=== PATIENT | female | born 1960 | race Caucasian/White ===

== ENCOUNTER 2024-05-02 17:30 | Inpatient (IN) | payer MEDICARE, MEDICAID, SELFPAY ==
[2024-05-02] VITALS (18 sets, daily range): BP systolic 174–235; BP diastolic 67–92; PULSE 71–99; RESP 14–20; TEMP 36.2–36.7; O2SAT 97–100
--- NOTE | ~2024-05-02 | US_ITS ---
US renal BI 05/06/2024 11:28 Procedure: Realtime transabdominal ultrasound of the kidneys and bladder. Indication: Worsening renal function Comparison: Ultrasound dated 05/03/2024 Findings: Renal echotexture is normal bilaterally without contour deforming mass or renal calculus. T here is moderate-severe right hydronephrosis. The right kidney measures 9.2 cm and left kidney measur es 9.8 cm. Bladder not well visualized due to catheterization. Impression: 1: Moderate-severe right hydronephrosis. Reviewed, dictated and finalized at location B. Impression: 1: Moderate-severe right hydronephrosis.
--- NOTE | ~2024-05-02 | CT_ITS ---
EXAMINATION: CT guide nephro tube pl RT DATE: 05/08/2024 13:35 INDICATION: Right hydronephrosis. TECHNIQUE: The procedure including the risks, benefits, and alternatives was discussed with the patie nt. Risks discussed included bleeding and infection. The patient understood the risks and benefits an d agreed to proceed. The skin overlying the right kidney was prepped and draped in usual sterile fas hion. Anesthetic was administered with 1% lidocaine subcutaneously. An 18 gauge trochar needle was i nserted into a calyx of the kidney under CT guidance. The needle was exchanged over a wire for 6 Fren ch and 8 Chadian dilators and then for an 8.5 Chadian pigtail catheter under CT guidance. The catheter was stitched to the skin. A dressing was applied. The mA was adjusted according to patient size. Iter ative reconstruction technique was employed. The dose-length product was 561.39 mGy-cm. There were no immediate complications. FINDINGS: CT images demonstrate the nephrostomy tube in the renal pelvis. IMPRESSION: 1. Successful CT-guided right nephrostomy tube placement. Reviewed, dictated and finalized at location A.
--- NOTE | ~2024-05-02 | XR_ITS ---
EXAMINATION: XR stent kub - surgery DATE: 05/05/2024 13:37 INDICATION: Left internal ureteral stent placement TECHNIQUE: Fluoroscopic images from a left internal ureteral stent placement are submitted for review . 91 seconds of fluoroscopy of fluoroscopy time. FINDINGS: There is a left double-J internal ureteral stent projecting in expected position, with proximal [place] loop at the level of the renal pelvis and distal loop in the pelvis within the bladder lumen. IMPRESSION: 1. Left internal ureteral stent placement. Please refer to real-time procedural findings for detail s. Reviewed, dictated and finalized at location B. IMPRESSION: 1. Left internal ureteral stent placement. Please refer to real-time procedur al findings for details.
--- NOTE | ~2024-05-02 | CT_ITS ---
CT abdomen pelvis wo con Ordering provider: Johann Dean MD History: 64 years Female with . worsened renal function . Comparison: May 02, 2024 Technique: CT abdomen and pelvis without IV and without oral contrast. Automated exposure control and iterative reconstruction technique were employed. The dose-length product was 171.21 mGy-cm. Findings: VISUALIZED LOWER CHEST: Normal. UPPER ABDOMINAL ORGANS: Liver: Normal. Gallbladder: Normal. Spleen: Normal. Stomach/duodenum: Normal. Pancreas: Normal. Adrenals: Slightly prominent both adrenal. Kidneys: Right hydronephrotic changes with no definite stones in the right kidney lower ureter. Stone at the ureterovesical junction cannot be excluded. Vascular calcifications versus tiny stones are se en. Left double-J stent is noted with air seen in the left pelvicalyceal system and left ureter. PELVIC ORGANS: The bladder shows multiple stones with left double-J stent. Findings catheter is seen. BOWEL AND MESENTERY: Colon: No evidence of diverticulitis. Fecal material is loaded in the colon suggestive of constipatio n. The appendix is not demonstrated. Small Bowel: Normal. No obstruction. Peritoneum/mesentery: No free air or free fluid. No mesenteric lymphadenopathy. RETROPERITONEUM: Severe atheromatous disease of the abdominal aorta and iliac arteries. Stent is see n in the right iliac artery. Mid aorta measures 2.3 cm. No retroperitoneal lymphadenopathy. MUSCULOSKELETAL: Superficial soft tissues: The superficial soft tissues are normal. Bones: Compression fracture is seen in the superior endplate of L1 which may be acute. Clinical corre lation and further evaluation advised. Mild to moderate degenerative changes of the spine. Small scle rotic lesions seen in the left iliac bone most likely benign. Follow-up advised. IMPRESSION: 1. Right hydronephrotic changes with dilated right ureter. Possibility of stone at the ureterovesica l junction cannot be excluded. 2. Multiple urinary bladder stones. 3. Left double-J stent with air seen in the pelvic calyceal system and ureter. 4. Constipation. 5. Compression fracture of the superior endplate of L1 which may be acute. Further evaluation and cl inical correlation advised. Reviewed, dictated and finalized at location A. IMPRESSION: 1. Right hydronephrotic changes with dilated right ureter. Possibility of ston e at the ureterovesical junction cannot be excluded. 2. Multiple urinary bladder stones. 3. Left double-J stent with air seen in the pelvic calyceal system and ureter. 4. Constipation. 5. Compression fracture of the superior endplate of L1 which may be acute. Fur ther evaluation and clinical correlation advised.
--- NOTE | ~2024-05-02 | NM_ITS ---
EXAMINATION: BERTIN estrella renal scan DATE: 05/04/2024 12:44 INDICATION: Bilateral hydronephrosis TECHNIQUE: 8.2 mCi Tc-99m MAG3 was administered IV. 40 mg furosemide was administered IV immediately afterward. The patient was scanned in the supine position. A posterior abdominal radionuclide angiog nj was obtained. A subsequent time course of static images of the kidneys, ureters, and bladder was obtained. COMPARISON: None FINDINGS: The posterior abdominal radionuclide angiogram and sequential static images show normal size, positio n, and morphology of the kidneys. Peak renal parenchymal uptake within defined in both kidneys with c ontinually rising renal activity curves (normal peak 3-5 minutes). The relative early renal uptake w as 52.4% on the left and 47.6% on the right (<40% is abnormal). There is readily discernible activit y in the bilateral ureters on the imaging the latter half the study consistent with the bilateral hyd roureter evident on prior CT. T1/2 for clearance of activity from the left kidney and proximal collecting system was is undefined w ith continually rising activity curves. T1/2 for clearance of activity from the right kidney and proximal collecting system was identified wi th continually rising activity curves. Notes on interpretation: T1/2 <10 minutes is normal, 10-15 minutes is low grade obstruction of questi onable clinical significance, 15-20 minutes is partial obstruction that is likely clinically signific ant, >20 minutes is high grade obstruction. Note that false positives may be seen with supine positio claudia, dehydration, severely dilated nonobstructed kidney, atonic collecting system, poor renal functi on, and chronic furosemide use. IMPRESSION: 1. Symmetric kidney function. 2. There is delayed activity clearance from both kidneys with continually rising activity curves whi ch would be consistent with high-grade obstruction likely at the level of the bladder given the bilat erality. Reviewed, dictated and finalized at location A. IMPRESSION: 1. Symmetric kidney function. 2. There is delayed activity clearance from both kidneys with continually risi ng activity curves which would be consistent with high-grade obstruction likely at the level of the bladder given the bilaterality.
--- NOTE | ~2024-05-02 | US_ITS ---
EXAMINATION: US renal BI DATE: 05/03/2024 12:12 INDICATION: Acute renal insufficiency TECHNIQUE: Multiple ultrasound grayscale images of the kidneys were obtained. COMPARISON: None. FINDINGS: The right kidney measures 11.3 x 5.3 x 4.3 cm. The left kidney measures 10.7 x 5.8 x 3.6 cm. The kidn eys demonstrate normal echogenicity. There is moderate bilateral hydronephrosis There is no hydroneph rosis in either kidney. No stones identified. The bladder is normal but with ureteral jets observed on color Doppler. IMPRESSION: 1. Moderate bilateral hydronephrosis. Reviewed, dictated and finalized at location A.
--- NOTE | ~2024-05-02 | XR_ITS ---
EXAMINATION: XR chest 1V portable DATE: 05/02/2024 21:28 INDICATION: Chest pain TECHNIQUE: AP view of the chest was obtained. COMPARISON: None FINDINGS: Minimal increased interstitial pattern in the lower lungs consistent with mild pulmonary edema. No ot her airspace opacities, pleural effusion or pneumothorax. The cardiomediastinal silhouette is normal. Visualized bones and soft tissues are unremarkable. IMPRESSION: 1. Mild pulmonary edema at the lung bases. Reviewed, dictated and finalized at location A.
--- NOTE | ~2024-05-02 | CT_ITS ---
EXAMINATION: CT abdomen pelvis wo con DATE: 05/02/2024 21:56 INDICATION: Elevated creatinine. TECHNIQUE: Computed tomography (CT) of the abdomen and pelvis was performed without intravenous contr ast. Automated exposure control and iterative reconstruction technique were employed. The dose-length product was 203.09 mGy-cm. COMPARISON: None FINDINGS: There is small amount of smooth septal line thickening at the bilateral lung bases consistent with mi nimal pulmonary edema. Heart size is normal. Atherosclerotic coronary artery calcification is. Minima l pericardial effusion. No pleural effusion. Liver, gallbladder, spleen, pancreas and bilateral adren al glands are normal. Surgical clips at the tip the cecum likely related to prior appendectomy. Moder ate to large amount of stool scattered throughout the colon. No bowel obstruction. The uterus is not identified and has likely been surgically resected. Stenting of the right common carotid right external iliac arteries. There is calcified atherosclerosi s of the normal caliber abdominal aorta and many of the other arteries. Scarring at the right inguina l region likely related to vascular access. This includes multiple atherosclerotic calcification is a t the bilateral renal leticia. There is mild right and moderate left hydroureteronephrosis which extends to the bladder. There are p ostoperative changes with multiple surgical clips in the pelvis. Some associated streak artifact limi ts evaluation of the region of the distal most ureters. There is curvilinear calcification along the right posterolateral bladder wall the region of the right ureterovesicular junction. There is a 4 mm calcification in the region of the left ureterovesicular junction potentially representing an obstruc ting ureteral stone. Moderate to severe lumbar and lower thoracic spondylosis. There is a relatively recent-appearing L1 c ompression fracture with 20% anterior vertebral body height loss and with a still discernible linear sclerotic fracture plane underlying the depressed superior endplate. IMPRESSION: 1. Mild right and moderate left hydroureteronephrosis extending to the bladder. This could be related to bladder outlet obstruction, neurogenic bladder or obstruction at the level of the renal apices to junctions with focal bladder mural calcification at the right ureterovesicular junction and possible 4 mm stone at the left ureterovesicular junction. Assessment somewhat limited by streak artifact fro m multiple sternal clips in the pelvis. Would recommend urologic consultation for further evaluation. 2. Minimal pulmonary edema and minimal pericardial effusion. Reviewed, dictated and finalized at location A. IMPRESSION: 1. Mild right and moderate left hydroureteronephrosis extending to the bladder. This could be related to bladder outlet obstruction, neurogenic bladder or obs truction at the level of the renal apices to junctions with focal bladder mural calcification at the right ureterovesicular junction and possible 4 mm stone a t the left ureterovesicular junction. Assessment somewhat limited by streak art ifact from multiple sternal clips in the pelvis. Would recommend urologic consu ltation for further evaluation. 2. Minimal pulmonary edema and minimal pericardial effusion.
--- NOTE | 2024-05-02 19:54 | PC.NURSE ---
pt unable to urinate at this time. pt is refusing straight cath at this time
[2024-05-02 19:56] LABS: Basophils Absolute Auto 0.1 K/mm3 (0.0-0.1); Basophils Percent Auto 1.2 % (0.2-1.2); Eosinophils Absolute Auto 0.4 K/mm3 (0-0.3); Hematocrit 27.6 % (37.0-47.0); Immature Granulocyte Absolute 0.03 K/mm3 (0.00-0.031); Immature Granulocyte Percent A 0.4 % (0-0.5); Lymphocytes Percent Auto 28.3 % (18.3-44.2); Mean Corpuscular HGB Conc 32.6 g/dl (32-36); Mean Corpuscular Hemoglobin 33.5 pg (26-34); Mean Corpuscular Volume 102.6 fl (80-100); Mean Platelet Volume 10.1 fl (7.4-10.4); Monocytes Absolute Auto 0.5 K/mm3 (0.1-0.6); Monocytes Percent Auto 5.8 % (2.6-8.5); Neutrophils Absolute Auto 4.6 K/mm3 (1.3-6.7); Neutrophils Percent Auto 59.3 % (45.5-73.1); Platelet Count Result 216 k/mm3 (150-375); Red Blood Count 2.69 M/mm3 (4.2-5.4); Red Cell Distribution Width 14.3 % (11.5-14.5); White Blood Count 7.8 K/mm3 (4.5-10.0)
--- NOTE | 2024-05-02 20:00 | ED.FEMALEGU ---
HPI - Female Genitourinary General Chief complaint: Urogenital-Female Stated complaint: Kidney level 19, problems with stent Time Seen by Provider: 05/02/24 19:01 History of Present Illness HPI Narrative: Patient is a 64-year-old female who presents to the emergency department this evening after her primary care physician informed her that she needs to present to the emergency department due to elevated kidney levels. Patient denies any history of chronic kidney disease and is a poor historian. Family members present at bedside due provide some of the history. Paperwork from [facility] brought in by the patient revealed blood work obtained on April 20 revealing a BUN of 46, creatinine of 3.7, blood work results from April 23 revealing a BUN of 32 and a creatinine of 3, and blood work from May 02 from outside facility revealing a BUN of 39 and creatinine of 2.70, unsure of what patient's baseline is. Patient has a chronic right foot wound that is currently being cared by wound which comes to her house once a week. Wound dressing was removed and patient and family members state that the wound has significantly improved and is healing well, patient does have an ulcer measuring approximately 3 cm x 2 cm on the top of her right foot and a small 1.5 by 1 cm ulcer at the heel of her right foot. Patient denies any fevers or chills at home. States that her blood pressure has been running high recently. Admits that she does take blood pressure medications but has not taken any of her medications today. Admits to history of peripheral vascular disease and has stents in her right lower extremity. Denies any additional symptoms or concerns at this time. Related Data Allergies Allergy/AdvReac Type Severity Reaction Status Date / Time No Known Allergies Allergy Verified 05/02/24 17:37 Review of Systems Review of Systems: All systems are reviewed and are negative unless stated otherwise in the HPI. Exam Narrative: General: Alert, awake, afebrile, in no acute distress. HEENT: PERRL, no rhinorrhea, no post nasal drip, oropharynx clear, poor dental hygiene. Cardiovascular: Regular rate and rhythm, no murmurs, rubs or gallops, no peripheral edema. Respiratory: Clear to auscultation bilaterally, no tachypnea, no wheezing, no rhonchi, no rubs, no respiratory distress. Abdomen: Soft, nontender, nondistended, no rebound, no guarding, no peritoneal signs. Musculoskeletal: No joint swelling or deformity, normal muscle tone, right 2nd 4th toe amputations. Skin: Chronic right foot wounds, an ulcer measuring approximately 3 cm x 2 cm on the top of her right foot and a small 1.5 by 1 cm ulcer at the heel of her right foot with some purulent drainage, no surrounding erythema, patient states that wounds are healing and appear to be significantly improved. Neurological: Alert and oriented to person, place, and time. Follows all commands. No focal deficits, speech is clear and fluent. Course Vital Signs Vital signs: Vital Signs Temperature 98.1 F 05/02/24 17:32 Pulse Rate 85 05/02/24 17:32 Respiratory Rate 16 05/02/24 17:32 Blood Pressure 206/77 H 05/02/24 17:32 Pulse Oximetry 100 05/02/24 17:32 Temperature 97.1 F L 05/02/24 21:15 Pulse Rate 80 05/02/24 22:31 Respiratory Rate 16 05/02/24 22:31 Blood Pressure 181/77 H 05/02/24 22:31 Pulse Oximetry 97 05/02/24 22:31 MDM - Female Genitourinary MDM Narrative Medical decision making narrative: The patient was evaluated by myself in the emergency department. History is obtained from patient who is an independent historian and physical exam was performed. External medical records were reviewed at this time. IV was established and pertinent tests were ordered. EKG was obtained at this time and independently interpreted by me revealing sinus rhythm rate of 99 beats per minute with T-wave inversions in the inferior leads and leads IV or throug
[2024-05-02 20:07] LABS: Anion Gap 5 mmol/L (4-12); Blood Urea Nitrogen 41 mg/dL (7-17); Carbon Dioxide 24 mmol/L (22-30); Chloride 109 mmol/L (98-107); Potassium 4.5 mmol/L (3.4-5.0); Sodium 138 mmol/L (137-145)
[2024-05-02 20:08] LABS: Alanine Aminotransferase 6 U/L (6-35); Albumin Level 3.4 g/dL (3.5-5.1); Alkaline Phosphatase 81 U/L (38-126); Aspartate Amino Transferase 19 U/L (14-36); Bilirubin,Total 0.1 mg/dL (0.2-1.3); Calcium 8.7 mg/dL (8.4-10.2); Estimated CRCL calculation 13 ml/min; Estimated Glomerular Filt Rate 18; Glucose 90 mg/dL (65-110); Magnesium 2.1 mg/dL (1.6-2.3)
[2024-05-02] MEDS: SODIUM CHLORIDE 0.9% IV 1,000 ML 999 ML IV CONT (20:18)
[2024-05-02] MEDS: hydrALAZINE HCL 20 MG/ML VIAL 10 MG IV PUSH (20:29)
--- NOTE | 2024-05-02 20:50 | ECG_ITS ---
Test Date: 2024-05-02 20:57:08 Measurements Intervals [place] Rate: 99 P: 74 IN: 150 QRS: 78 QRSD: 86 T: 264 QT: 320 QTc: 412 Interpretive Statements SINUS RHYTHM ST-T WAVE ABNORMALITY IN ANTEROLAT/INF LEADS- CONSIDER ISCHEMIA BASELINE ARTIFACT- I, II, III, AVR, AVL, AVF, V4-V6 ABNORMAL ECG No previous ECG available for comparison Electronically Signed On 05-03-2024 06:39:29 CDT by Alek Sy D.O.
[2024-05-02] MEDS: ASPIRIN 81 MG CHEWABLE TABLET 324 MG PO (21:13)
[2024-05-02] MEDS: NITROGLYCERIN SL 0.4 MG TABLET SUBLINGUAL (21:13)
[2024-05-02 21:28] LABS: Troponin I < 0.012 ng/mL (0.000-0.034)
[2024-05-02 21:37] LABS: Add Urine Microscopic? YES; Appearance Urine Clear (Clear); Bacteria Urine None Seen /hpf; Bilirubin Urine Negative (Negative); Blood Urine 3+ (Negative); Color Urine Yellow (Yellow); Glucose Urine UA Negative (Negative); Ketones Urine Negative (Negative); Leukocyte Esterase Ur Negative LEU/UL (Negative); Nitrate Urine Negative (Negative); Non Pathogenic Casts 0-2; Protein Urine 3+ mg/dL (Negative); RBC Urine >100 /hpf (0-2); Specific Grav Ur 1.009 (1.001-1.035); Squamous Epithelial Cell Urine None Seen /hpf (Few); Urobilinogen Urine 0.2 mg/dL (<2.0); WBC Urine 0-5 /hpf (0-3)
--- NOTE | 2024-05-02 22:46 | ECG_ITS ---
Test Date: 2024-05-02 22:51:59 Measurements Intervals [place] Rate: 86 P: 68 CA: 161 QRS: 70 QRSD: 83 T: 63 QT: 381 QTc: 457 Interpretive Statements SINUS RHYTHM POSSIBLE LEFT ATRIAL ENLARGEMENT MINIMAL Q WAVES- INFERIOR LEADS BORDERLINE ST ABNORMALITY- INF/LAT LEADS BORDERLINE ECG Compared to ECG 05/02/2024 20:57:08 Possible ischemia no longer present Electronically Signed On 05-03-2024 06:40:19 CDT by Alek Sy D.O.
[2024-05-02 23:22] LABS: Troponin I 0.025 ng/mL (0.000-0.034)
--- NOTE | 2024-05-02 23:54 | PM.IMHP ---
H&P: HPI History of Present Illness Date/Time: 05/02/24 23:54 Chief Complaint: abnormal lab work Narrative: This is a 64-year-old female with past medical history significant for hypertension, peripheral vascular disease, chronic kidney disease, chronic wound of the foot, patient is also status post toe amputation of the right foot. Presents to the emergency room for evaluation due to abnormal lab work with increased creatinine. Patient denies any fevers, rigors, chills, nausea, vomiting, denies taking antibiotics, denies diarrhea. Patient Age has a creatinine of 2.7. Primary care physicians sent her over for further workup. EXAMINATION: CT abdomen pelvis wo con DATE: 05/02/2024 21:56 INDICATION: Elevated creatinine. TECHNIQUE: Computed tomography (CT) of the abdomen and pelvis was performed without intravenous contrast. Automated exposure control and iterative reconstruction technique were employed. The dose-length product was 203.09 mGy-cm. COMPARISON: None FINDINGS: There is small amount of smooth septal line thickening at the bilateral lung bases consistent with minimal pulmonary edema. Heart size is normal. Atherosclerotic coronary artery calcification is. Minimal pericardial effusion. No pleural effusion. Liver, gallbladder, spleen, pancreas and bilateral adrenal glands are normal. Surgical clips at the tip the cecum likely related to prior appendectomy. Moderate to large amount of stool scattered throughout the colon. No bowel obstruction. The uterus is not identified and has likely been surgically resected. Stenting of the right common carotid right external iliac arteries. There is calcified atherosclerosis of the normal caliber abdominal aorta and many of the other arteries. Scarring at the right inguinal region likely related to vascular access. This includes multiple atherosclerotic calcification is at the bilateral renal leticia. There is mild right and moderate left hydroureteronephrosis which extends to the bladder. There are postoperative changes with multiple surgical clips in the pelvis. Some associated streak artifact limits evaluation of the region of the distal most ureters. There is curvilinear calcification along the right posterolateral bladder wall the region of the right ureterovesicular junction. There is a 4 mm calcification in the region of the left ureterovesicular junction potentially representing an obstructing ureteral stone. Moderate to severe lumbar and lower thoracic spondylosis. There is a relatively recent-appearing L1 compression fracture with 20% anterior vertebral body height loss and with a still discernible linear sclerotic fracture plane underlying the depressed superior endplate. IMPRESSION: 1. Mild right and moderate left hydroureteronephrosis extending to the bladder. This could be related to bladder outlet obstruction, neurogenic bladder or obstruction at the level of the renal apices to junctions with focal bladder mural calcification at the right ureterovesicular junction and possible 4 mm stone at the left ureterovesicular junction. Assessment somewhat limited by streak artifact from multiple sternal clips in the pelvis. Would recommend urologic consultation for further evaluation. 2. Minimal pulmonary edema and minimal pericardial effusion. Review of Systems Review of Systems: Abnormal lab work ROS unobtainable: Yes other ( patient is a poor historian unable to contribute in a meaningful way ) COUNTS INCLUDE 234 BEDS AT THE [facility] Past Medical History Medical History (Updated 05/03/24 @ 09:28 by Idania Chen PA-C) Kidney stones Family History Family History (Updated 05/03/24 @ 00:42 by Agnieszka Nichols RN) Sibling Cancer Diabetes mellitus Hypertension Mother Cancer Cerebrovascular accident Father Diabetes mellitus Hypertension Acute myocardial infarction Congestive heart failure Chronic obstructive pulmonary disease Social History Social History (Reviewed 05/02/24
[2024-05-03] VITALS (17 sets, daily range): BP systolic 155–230; BP diastolic 60–94; PULSE 84–133; RESP 16–20; TEMP 36.6–36.8; O2SAT 97–100; BMI 17.9
--- NOTE | 2024-05-03 00:24 | PC.NURSE ---
This RN made Hospitalist Dr. Vieira aware of pt continuous high BP readings. Provider VORB 10mg IVP hydralazine.
[2024-05-03] MEDS: hydrALAZINE HCL 20 MG/ML VIAL 10 MG IV PUSH ×4 (00:33→23:00)
--- NOTE | 2024-05-03 01:01 | ADMGEN ---
This patient, Adelaida Carpio, was admitted to Medical Room 257-01. Patient/family oriented to hospital policies and general routines including ID bracelet, bed and alarms, visiting hours, pain management, procedures, bathroom and other care routines, personal items, smoking policy, room service/diet, and visiting hours. Information on how to activate the Rapid Response Team has been discussed. Patient/Family are encouraged to report perceived risks to care and to ask questions if they do not understand what they are told or what they should do.
[2024-05-03] MEDS: amLODIPine BESYLATE 10 MG TABLET PO (02:03)
--- NOTE | 2024-05-03 02:21 | ECG_ITS ---
Test Date: 2024-05-03 02:32:51 Measurements Intervals [place] Rate: 101 P: 65 CO: 128 QRS: 64 QRSD: 85 T: -81 QT: 349 QTc: 454 Interpretive Statements SINUS TACHYCARDIA LEFT VENTRICULAR HYPERTROPHY AND ST-T CHANGE ST-T WAVE ABNORMALITY IN ANTEROLATERAL LEADS- CONSIDER ISCHEMIA ABNORMAL ECG Compared to ECG 05/02/2024 22:51:59 HEART RATE HAS INCREASED ST-T WAVE ABNORMALITY, CONSIDER ISCHEMIA NOW PRESENT Electronically Signed On 05-03-2024 06:45:03 CDT by Alek Sy D.O.
[2024-05-03] MEDS: MORPHINE SULFATE (*CRX) 2 MG/ML INJ 1 MG IV PUSH (02:29)
[2024-05-03] MEDS: ONDANSETRON INJ 4 MG/2 ML VIAL IV PUSH (02:45)
--- NOTE | 2024-05-03 08:32 | PM.IMPN ---
Progress Note: A&P Assessment and Plan (1) ERIC (acute kidney injury): Code(s): N17.9 - Acute kidney failure, unspecified Status: Acute Assessment and Plan: placed in observation in med tele patient's BUN and creatinine will be monitored daily daily BMP will hold spironolactone will hold benazepril will hold hydrochlorothiazide renal ultrasound in am (2) Uncontrolled hypertension: Code(s): I10 - Essential (primary) hypertension Status: Acute Assessment and Plan: hydralazine 10 mg IV Q 6 hours p.r.n. (3) Peripheral vascular disease: Code(s): I73.9 - Peripheral vascular disease, unspecified Status: Acute Assessment and Plan: status post stent placement (4) Chronic wound of extremity: Status: Acute Assessment and Plan: local care-would care is ordered- appreciate recommendations Time Spent With Patient Time with patient: Greater than 35 minutes Subjective Date/time seen: 05/03/24 08:32 Interval history: abnormal lab work Narrative retrieved from H/P: This is a 64-year-old female with past medical history significant for hypertension, peripheral vascular disease, chronic kidney disease, chronic wound of the foot, patient is also status post toe amputation of the right foot. Presents to the emergency room for evaluation due to abnormal lab work with increased creatinine. Patient denies any fevers, rigors, chills, nausea, vomiting, denies taking antibiotics, denies diarrhea. Patient Age has a creatinine of 2.7. Primary care physicians sent her over for further workup. 05/03- pt is seen and examined today. she is resting in bed- voicing no complains Review of Systems Review of Systems: Abnormal lab work Exam Narrative: Patient is laying in a stretcher Const: General: comfortable, no acute distress, well developed, alert, awake, ill appearing chronically, average body habitus and underweight Nutritional Appearance: average body habitus and underweight Orientation/consciousness: patient oriented x3 Other: patient looks older than stated age HENMT: Head: normal to inspection, normocephalic and atraumatic Ears: hearing grossly normal bilaterally Face/Nose/Sinus: normal facial exam Face and sinus: normal facial exam Eyes: General: appearance normal, both eyes and all related structures Pupils: Equal, round and reactive pupils present EOM: EOMs intact bilaterally Neck: Neck: full ROM, no lymphadenopathy and no JVD Thyroid: thyroid normal Lymphatic: no lymphadenopathy noted Resp: Effort & Inspection: normal respiratory effort and able to speak in complete sentences Auscultation: clear to auscultation bilaterally Cardio: Jugular venous distension: no JVD Rate: regular rate Rhythm: regular rhythm Heart sounds: S1 normal heart sound present and S2 normal heart sound present : General: Yes deferred Skin: Rashes: no rashes Wounds: no wounds Neuro: General: patient oriented x3, CN's II-XI intact bilaterally and Unable to assess gait Cranial nerves: Yes CN's II-XII intact bilaterally and Yes Equal, round and reactive pupils present Cognition (Neuro): normal cognition Speech: normal speech Gait exam (Neuro): Unable to assess gait Motor exam (neuro): 5/5 motor strength present throughout Extrem: General: normal to inspection, full ROM, no joint enlargement and no pedal edema Other: patient is status post toe amputation of the right foot dressing in place Objective Data Vital Signs Vital Signs: Vital Signs - 24 hr 05/02/24 17:32 05/02/24 18:44 05/02/24 18:35 Temperature 98.1 F Pulse Rate 85 81 79 Respiratory Rate 16 14 16 Blood Pressure 206/77 H 216/92 H 216/92 H Pulse Oximetry 100 100 100 Oxygen Delivery Fraction of Inspired Oxygen 05/02/24 18:46 05/02/24 19:01 05/02/24 19:16 Temperature Pulse Rate 79 71 76 Respiratory Rate 16 15 14 Blood Pressure 214/76 H 202/73 H 21
--- NOTE | 2024-05-03 09:15 | WPDURCON ---
Assessment and Plan Assessment and plan (1) Bilateral hydronephrosis: Code(s): N13.30 - Unspecified hydronephrosis Status: Acute Assessment and Plan: Noted to have mild right and moderate left hydronephrosis extending to bladder with possible ureteral obstruction. Will proceed with byrnes catheter placement and monitor creatinine to assess for improvement. Consider repeat renal US in next 1-2 days to ensure resolution of hydronephrosis. (2) ERIC (acute kidney injury): Code(s): N17.9 - Acute kidney failure, unspecified Status: Acute Assessment and Plan: Creatinine 2.7 on presentation. Baseline is unknown. Awaiting repeat labs this morning Urology Consult Note HPI Date Seen: 05/03/24 Requesting Physician: Lauren Vieira MD Primary Care Provider: Rosa Maria Dawkins, [employer] Consult Narrative Narrative: Adelaida Carpio is a 64 year old female with history of prior kidney stones which have passed spontaneously who is currently admitted for acute kidney injury. The patient was instructed to present to the ER by her PCP after having outpatient labs completed that demonstrated acute kidney injury. Upon arrival to the emergency department, her BP was elevated, additional vital signs were stable and she was afebrile, WBC within normal limits at 7.8, creatinine 2.7, BUN 41, UA with 3+ blood, negative leukocytes, negative nitrates. A CT of her abdomen/pelvis was completed which demonstrates mild right and moderate left hydroureteronephrosis extending to the bladder evaluation limited by streak artifact, though there is possible calcification along the right posterolateral bladder wall in the region of the right UVJ along with a possible 4 mm calcification of the left UVJ. Also noted to have multiple surgical clips in the pelvis, though patient reports no prior history of abdominal or pelvic surgery. She is a rather poor historian and required questions to be repeated several times before she would provide a response. At the time of my evaluation, she is resting comfortably and offers no concerns. She denies dysuria, hematuria, incomplete emptying, history of retention, abdominal pain, flank pain, back pain, nausea, vomiting, fever, or chills. She does report that she was previously established with a urologist in [place] several years ago due to her history of stones, though never required any surgery Review of Systems Review of Systems: All systems reviewed & are unremarkable except as noted in HPI and below PMFSH Past Medical History Medical History (Updated 05/03/24 @ 09:28 by Idania Chen PA-C) Kidney stones Family History Family History (Updated 05/03/24 @ 00:42 by Agnieszka Nichols RN) Sibling Cancer Diabetes mellitus Hypertension Mother Cancer Cerebrovascular accident Father Diabetes mellitus Hypertension Acute myocardial infarction Congestive heart failure Chronic obstructive pulmonary disease Social History Social History Smoking packs per day: 0.5 Smoking cigarettes per day: 10.0 Years smoked: 51 Smoking pack-years: 25.50 Smoking status: Current some day smoker Substance use type: marijuana Last use: 05/02/24 Do You Feel Safe in your Home?: Yes Lack of Transportation: No Lack of Food: Never True Current Housing: I Have Housing Concerned About Future Housing: No Difficulty Paying Gas/Electric Bills: No Difficulty Paying for Meds: No Currently Unemployed: No Education: High School Diploma/GED Difficulty w/ Childcare or Family Care: No Spiritual care concerns: No Meds Home Medications and Allergies Home Medications Medication Instructions Recorded Confirmed Type amlodipine 10 mg-benazepril 40 mg 1 cap PO DAILY 05/03/24 05/03/24 History capsule aspirin 81 mg tablet,delayed 81 mg PO DAILY 05/03/24 05/03/24 History release clopidogrel 75 m
[2024-05-03] MEDS: ROSUVASTATIN 20 MG TABLET 40 MG PO (20:12)
[2024-05-04] VITALS (12 sets, daily range): BP systolic 110–237; BP diastolic 48–80; PULSE 82–111; RESP 16–18; TEMP 36.6–36.9; O2SAT 95–100
[2024-05-04] MEDS: ONDANSETRON INJ 4 MG/2 ML VIAL IV PUSH (05:34)
[2024-05-04] MEDS: GABAPENTIN 400 MG CAPSULE PO ×3 (08:27→17:27)
[2024-05-04] MEDS: ASPIRIN 81 MG ENTERIC TABLET PO (08:28)
[2024-05-04] MEDS: SERTRALINE HCL 25 MG TABLET PO (08:28)
[2024-05-04] MEDS: amLODIPine BESYLATE 10 MG TABLET PO (08:28)
[2024-05-04] MEDS: CLOPIDOGREL BISULFATE 75 MG TABLET PO (08:28)
[2024-05-04] MEDS: hydrALAZINE HCL 20 MG/ML VIAL 10 MG IV PUSH (08:28)
[2024-05-04 09:00] LABS: Anion Gap 11 mmol/L (4-12); Blood Urea Nitrogen 35 mg/dL (7-17); Calcium 8.8 mg/dL (8.4-10.2); Carbon Dioxide 17 mmol/L (22-30); Chloride 110 mmol/L (98-107); Estimated CRCL calculation 14 ml/min; Estimated Glomerular Filt Rate 18; Glucose 101 mg/dL (65-110); Potassium 3.9 mmol/L (3.4-5.0); Sodium 138 mmol/L (137-145)
--- NOTE | 2024-05-04 09:16 | PM.IMPN ---
Progress Note: A&P Assessment and Plan (1) ERIC (acute kidney injury): Code(s): N17.9 - Acute kidney failure, unspecified Status: Acute Assessment and Plan: placed in observation in med tele patient's BUN and creatinine will be monitored daily daily BMP will hold spironolactone will hold benazepril will hold hydrochlorothiazide renal ultrasound - repeat- urology following (2) Uncontrolled hypertension: Code(s): I10 - Essential (primary) hypertension Status: Acute Assessment and Plan: hydralazine 10 mg IV Q 6 hours p.r.n. (3) Peripheral vascular disease: Code(s): I73.9 - Peripheral vascular disease, unspecified Status: Acute Assessment and Plan: status post stent placement (4) Chronic wound of extremity: Status: Acute Assessment and Plan: local care Time Spent With Patient Time with patient: Greater than 35 minutes Subjective Date/time seen: 05/04/24 09:16 Interval history: abnormal lab work Narrative retrieved from H/P: This is a 64-year-old female with past medical history significant for hypertension, peripheral vascular disease, chronic kidney disease, chronic wound of the foot, patient is also status post toe amputation of the right foot. Presents to the emergency room for evaluation due to abnormal lab work with increased creatinine. Patient denies any fevers, rigors, chills, nausea, vomiting, denies taking antibiotics, denies diarrhea. Patient Age has a creatinine of 2.7. Primary care physicians sent her over for further workup. 05/03- pt is seen and examined today. she is resting in bed- voicing no complains 05/04- BP high- amlodipine daily, Hydralazine IV prn. Renal ultrasound repeat posisbly today. She is very cranky as feels constipated and uncomfortable. Review of Systems Review of Systems: Abnormal lab work All systems reviewed & are unremarkable except as noted in HPI and below ROS unobtainable: Yes other ( patient is a poor historian unable to contribute in a meaningful way ) Exam Narrative: General: Awake, alert, comfortable, no acute distress HEENT: Normocephalic, atraumatic, sclerae anicteric Respiratory: Normal respiratory effort, no accessory muscle use Abdomen: Nondistended, soft, nontender Skin: Normal coloration, warm and dry Neurologic: No focal neuro deficits noted Psychiatric: slightly irrigated but cooperative Const: General: comfortable, no acute distress, well developed, alert, awake, ill appearing chronically, average body habitus and underweight Nutritional Appearance: average body habitus and underweight Orientation/consciousness: patient oriented x3 Other: patient looks older than stated age HENMT: Head: normal to inspection, normocephalic and atraumatic Ears: hearing grossly normal bilaterally Face/Nose/Sinus: normal facial exam Face and sinus: normal facial exam Eyes: General: appearance normal, both eyes and all related structures Pupils: Equal, round and reactive pupils present EOM: EOMs intact bilaterally Neck: Neck: full ROM, no lymphadenopathy and no JVD Thyroid: thyroid normal Lymphatic: no lymphadenopathy noted Resp: Effort & Inspection: normal respiratory effort and able to speak in complete sentences Auscultation: clear to auscultation bilaterally Cardio: Jugular venous distension: no JVD Rate: regular rate Rhythm: regular rhythm Heart sounds: S1 normal heart sound present and S2 normal heart sound present : General: Yes deferred Skin: Rashes: no rashes Wounds: no wounds Neuro: General: patient oriented x3, CN's II-XI intact bilaterally and Unable to assess gait Cranial nerves: Yes CN's II-XII intact bilaterally and Yes Equal, round and reactive pupils present Cognition (Neuro): normal cognition Speech: normal speech Gait exam (Neuro): Unable to assess gait Motor exam (neuro): 5/5 motor strength present throughout Extrem: General: normal t
--- NOTE | 2024-05-04 09:26 | WPDUROPN2 ---
Progress Note: A&P Assessment and Plan (1) Bilateral hydronephrosis: Code(s): N13.30 - Unspecified hydronephrosis Status: Acute Assessment and Plan: Noted to have mild right and moderate left hydronephrosis extending to bladder with possible ureteral obstruction. No significant change in creatinine today despite decompression with Fuentes catheter (Fuentes placed 05/03/2024). Will proceed with Lasix renal scan for further evaluation (2) ERIC (acute kidney injury): Code(s): N17.9 - Acute kidney failure, unspecified Status: Acute Assessment and Plan: Creatinine 2.7 on presentation. Baseline is unknown. Essentially unchanged today at 2.6. Continue to monitor Subjective Subjective Date/Time Seen: 05/04/24 09:26 Interval history: Feeling fair today. Complains of constipation. Reports no issues with Fuentes catheter which is draining clear urine. Denies nausea, vomiting, fever, or chills. Review of Systems Review of Systems: All systems reviewed & are unremarkable except as noted in HPI and below Exam Narrative: General: Awake, alert, comfortable, no acute distress HEENT: Normocephalic, atraumatic, sclerae anicteric Respiratory: Normal respiratory effort, no accessory muscle use Abdomen: Nondistended, soft, nontender : Fuentes catheter draining clear urine Skin: Normal coloration, warm and dry Neurologic: No focal neuro deficits noted Psychiatric: Appropriate mood and affect, judgment and insight intact Objective Data Vital Signs Vital Signs: Vital Signs - 24 hr 05/03/24 10:07 05/03/24 10:08 05/03/24 12:00 Temperature 97.9 F Pulse Rate 91 86 Respiratory Rate 16 Blood Pressure 155/62 H Pulse Oximetry 97 Oxygen Delivery Room Air Fraction of Inspired Oxygen 05/03/24 16:31 05/03/24 16:00 05/03/24 19:41 Temperature 98.3 F Pulse Rate 84 95 84 Respiratory Rate 16 16 Blood Pressure 185/70 H Pulse Oximetry 100 100 Oxygen Delivery Room Air Fraction of Inspired Oxygen 21 05/03/24 20:00 05/03/24 20:15 05/04/24 00:00 Temperature 98.2 F Pulse Rate 95 100 105 H Respiratory Rate 16 Blood Pressure 217/60 H Pulse Oximetry 100 Oxygen Delivery Fraction of Inspired Oxygen 05/04/24 04:00 05/04/24 06:00 05/04/24 08:25 Temperature 97.9 F Pulse Rate 88 82 111 H Respiratory Rate 16 Blood Pressure 110/64 237/80 H Pulse Oximetry 95 Oxygen Delivery Fraction of Inspired Oxygen Intake/Output Intake/Output: Intake & Output 05/01/24 05/02/24 05/03/24 05/04/24 23:59 23:59 23:59 23:59 Intake Total 1000 200 500 Output Total 450 900 Balance 1000 -250 -400 Meds/Results Medications: Active Medications Generic Name Dose Route Start Last Admin Trade Name Freq PRN Reason Stop Dose Admin Amlodipine Besylate 10 mg 05/03/24 01:40 05/04/24 08:28 Amlodipine Besylate 10 Mg Tablet PO 06/02/24 08:59 10 mg DAILY HIREN Administration Aspirin 81 mg 05/03/24 09:00 05/04/24 08:28 Aspirin 81 Mg Enteric Tablet PO 81 mg DAILY HIREN Administration Clopidogrel Bisulfate 75 mg 05/03/24 09:00 05/04/24 08:28 Clopidogrel Bisulfate 75 Mg Tablet PO 75 mg DAILY HIREN Administration Gabapentin 400 mg 05/03/24 09:00 05/04/24 08:27 Gabapentin 400 Mg Capsule PO 400 mg TID HIREN Administration Hydralazine HCl 10 mg 05/04/24 09:19 Hydralazine Hcl 20 Mg/Ml Vial IV PUSH Q6H PRN SYSTOLIC BP >150 Nitroglycerin 0.4 mg 05/03/24 01:20 Nitroglycerin Sl 0.4 Mg Tablet SUBLINGUAL Q5MIN PRN CHEST PAIN Ondansetron HCl 4 mg 05/03/24 02:37 05/04/24 05:34 Ondansetron Inj 4 Mg/2 Ml Vial IV PUSH 4 mg Q6H PRN Administration Nausea And Vomiting Rosuvastatin Calcium 40 mg 05/03/24 21:00 05/03/24 20:12 Rosuvastatin 20 Mg Tablet PO 40 mg HS HIREN Administration Sertraline HCl 25 mg 05/03/24 09:00 05/04/24 08:28 Sertraline Hcl 25 Mg Tablet PO
--- NOTE | 2024-05-04 10:35 | PCNFU ---
Nutrition Follow-Up Complete: Inadequate Energy Intake as related to ERIC as evideced by poor po intake and weight loss reported. Meet estimated nutritional needs. - Not progressing. Diet was advanced to regular but intakes are poor. Continue with same goal Goal: Pt current nutrition is Regular diet. Ensure Compact BID for additional 220 kcal and 9 g protein each. Nutrition recommendation: No new nutrition recommendations. Continue current nutrition care plan. Agree with diet orders Last recorded weight is 44.3 kg. Bowel Motility: No BMs are recorded Labs Reviewed: GFR 18, BUN 35, Cre 2.6 Meds Noted Zofran Skin: No pressure injuries Additional Notes: Intakes very poor, 0% dinner, sleeping at breakfast. Pt not able to give weight history and no weights in EMR. Will assess for malnutrition if information is obtained. Will monitor weight, labs, skin, oral intake, meds every 3 days.
[2024-05-04] MEDS: DOCUSATE SODIUM 100 MG CAPSULE PO ×2 (11:17→20:03)
[2024-05-04] MEDS: polyethylene glycoL 3350 17 GM POWD.PACK PO (11:17)
[2024-05-04] MEDS: METOPROLOL TARTRATE INJ 5 MG/5 ML VIAL IV PUSH (11:18)
[2024-05-04] MEDS: FUROSEMIDE INJ 40 MG/4 ML VIAL IV PUSH (12:03)
[2024-05-04] MEDS: BISACODYL 10 MG SUPPOSITORY RECTAL (17:41)
[2024-05-04] MEDS: ROSUVASTATIN 20 MG TABLET 40 MG PO (20:03)
[2024-05-05] VITALS (17 sets, daily range): BP systolic 122–189; BP diastolic 54–82; PULSE 73–84; RESP 12–20; TEMP 36.5–37.2; O2SAT 97–100
[2024-05-05 08:42] LABS: Anion Gap 10 mmol/L (4-12); Blood Urea Nitrogen 37 mg/dL (7-17); Calcium 8.6 mg/dL (8.4-10.2); Carbon Dioxide 18 mmol/L (22-30); Chloride 106 mmol/L (98-107); Estimated CRCL calculation 13 ml/min; Estimated Glomerular Filt Rate 18; Glucose 82 mg/dL (65-110); Potassium 3.4 mmol/L (3.4-5.0); Sodium 134 mmol/L (137-145)
--- NOTE | 2024-05-05 09:04 | WPDUROPN2 ---
Progress Note: A&P Assessment and Plan (1) Bilateral hydronephrosis: Code(s): N13.30 - Unspecified hydronephrosis Status: Acute Assessment and Plan: Noted to have mild right and moderate left hydronephrosis extending to bladder with possible ureteral obstruction. Renal scan demonstrates bilateral high-grade obstruction. Creatinine remains elevated, unchanged since admission at 2.7. Continue NPO diet and will plan for cystoscopy, retrograde pyelogram, bilateral ureteral stent placement this afternoon. (2) ERIC (acute kidney injury): Code(s): N17.9 - Acute kidney failure, unspecified Status: Acute Assessment and Plan: Creatinine persistently elevated 2.7. Baseline is unknown. Subjective Subjective Date/Time Seen: 05/05/24 09:04 Interval history: Feeling fair today. Denies abdominal pain, flank pain, nausea, vomiting, fever, or chills. No issues with Fuentes catheter which is draining tea-colored urine. Review of Systems Review of Systems: All systems reviewed & are unremarkable except as noted in HPI and below Exam Narrative: General: Awake, alert, comfortable, no acute distress HEENT: Normocephalic, atraumatic, sclerae anicteric Respiratory: Normal respiratory effort, no accessory muscle use Abdomen: Nondistended, soft, nontender : Fuentes catheter draining tea-colored urine Skin: Normal coloration, warm and dry Neurologic: No focal neuro deficits noted Psychiatric: Appropriate mood and affect, judgment and insight intact Objective Data Vital Signs Vital Signs: Vital Signs - 24 hr 05/04/24 10:28 05/04/24 11:18 05/04/24 14:00 Temperature 98.4 F Pulse Rate 111 H 87 Respiratory Rate 18 Blood Pressure 179/56 H 136/48 L Pulse Oximetry 100 Oxygen Delivery Fraction of Inspired Oxygen 05/04/24 16:00 05/04/24 19:53 05/04/24 20:00 Temperature Pulse Rate 83 83 90 Respiratory Rate 18 Blood Pressure Pulse Oximetry 100 Oxygen Delivery Room Air Fraction of Inspired Oxygen 21 05/04/24 19:49 05/05/24 00:00 05/05/24 04:00 Temperature 98.3 F Pulse Rate 85 84 82 Respiratory Rate 16 Blood Pressure 190/69 H Pulse Oximetry 99 Oxygen Delivery Fraction of Inspired Oxygen 05/05/24 06:37 Temperature 97.9 F Pulse Rate 81 Respiratory Rate 18 Blood Pressure 172/60 H Pulse Oximetry 97 Oxygen Delivery Fraction of Inspired Oxygen Intake/Output Intake/Output: Intake & Output 05/02/24 05/03/24 05/04/24 05/05/24 23:59 23:59 23:59 23:59 Intake Total 1000 200 620 0 Output Total 450 1800 Balance 1000 -250 -1180 0 Meds/Results Medications: Active Medications Generic Name Dose Route Start Last Admin Trade Name Freq PRN Reason Stop Dose Admin Amlodipine Besylate 10 mg 05/03/24 01:40 05/04/24 08:28 Amlodipine Besylate 10 Mg Tablet PO 06/02/24 08:59 10 mg DAILY HIREN Administration Aspirin 81 mg 05/03/24 09:00 05/04/24 08:28 Aspirin 81 Mg Enteric Tablet PO 81 mg DAILY HIREN Administration Bisacodyl 10 mg 05/04/24 10:43 05/04/24 17:41 Bisacodyl 10 Mg Suppository RECTAL 10 mg QAM PRN Administration Constipation Clopidogrel Bisulfate 75 mg 05/03/24 09:00 05/04/24 08:28 Clopidogrel Bisulfate 75 Mg Tablet PO 75 mg DAILY HIREN Administration Docusate Sodium 100 mg 05/04/24 09:00 05/04/24 20:03 Docusate Sodium 100 Mg Capsule PO 100 mg Q12HR HIREN Administration Gabapentin 400 mg 05/03/24 09:00 05/04/24 17:27 Gabapentin 400 Mg Capsule PO 400 mg TID HIREN Administration Hydralazine HCl 10 mg 05/04/24 09:19 Hydralazine Hcl 20 Mg/Ml Vial IV PUSH Q6H PRN SYSTOLIC BP >150 Nitroglycerin 0.4 mg 05/03/24 01:20 Nitroglycerin Sl 0.4 Mg Tablet SUBLINGUAL Q5MIN PRN CHEST PAIN Ondansetron HCl 4 mg 05/03/24 02:37 05/04/24 05:34 Ondansetron Inj 4 Mg/2 Ml Vial IV PUSH 4 mg Q6H PRN Administration Nausea And
[2024-05-05] MEDS: GABAPENTIN 400 MG CAPSULE PO ×2 (11:05→17:22)
[2024-05-05] MEDS: SERTRALINE HCL 25 MG TABLET PO (11:05)
[2024-05-05] MEDS: amLODIPine BESYLATE 10 MG TABLET PO (11:05)
[2024-05-05] MEDS: hydrALAZINE 10 MG TABLET PO ×2 (11:05→17:22)
--- NOTE | 2024-05-05 12:48 | WPDHPUPDATE1 ---
History and Physical Update Update Date/Time: 05/05/24 12:48 History and Physical has been reviewed, including an updated exam of the patient. There are NO changes in the patient's condition. Risks, benefits, and alternatives have been discussed and questions answered. Patient agrees to proceed with procedure.
--- NOTE | 2024-05-05 12:54 | WPDANESEPPF ---
Anes - Initial Pre Proc Eval Procedure: Operation Date: 05/05/24 14:15 Proposed Procedures p Cystoscopy,Bilateral Retrograde Pyelogram,Bilateral Stent Placement - Yuliya Carpenter MD Date/Time: 05/05/24 12:54 Surgeon: Lauren Vieira MD Pre Op Diagnosis: ERIC, Postrenal obstruction Patient Data Age: 64 Gender: F Height: 1.57 m Weight: 44.3 kg Last Vital Signs Temp 99.0 F 05/05/24 12:15 Pulse 82 05/05/24 12:15 Resp 18 05/05/24 12:15 BP 122/65 05/05/24 12:15 Pulse Ox 100 05/05/24 12:15 O2 Del Method Room Air 05/05/24 12:15 FiO2 21 05/04/24 19:53 Allergies Allergy/AdvReac Type Severity Reaction Status Date / Time No Known Allergies Allergy Verified 05/03/24 00:14 Home Medications Medication Instructions Recorded Confirmed Type amlodipine 10 mg-benazepril 40 mg 1 cap PO DAILY 05/03/24 05/03/24 History capsule aspirin 81 mg tablet,delayed 81 mg PO DAILY 05/03/24 05/03/24 History release clopidogrel 75 mg tablet 75 mg PO DAILY 05/03/24 05/03/24 History gabapentin 400 mg capsule 400 mg PO TID 05/03/24 05/03/24 History hydrochlorothiazide 25 mg tablet 25 mg PO DAILY 05/03/24 05/03/24 History nitroglycerin 0.4 mg sublingual 0.4 mg sublingual DIRECTED 05/03/24 05/03/24 History tablet rosuvastatin 40 mg tablet 40 mg PO HS 05/03/24 05/03/24 History sertraline 25 mg tablet 25 mg PO DAILY 05/03/24 05/03/24 History spironolactone 25 mg tablet 25 mg PO DAILY 05/03/24 05/03/24 History Laboratory Tests 05/05/24 08:27 Sodium 134 L mmol/L (137-145) Potassium 3.4 mmol/L (3.4-5.0) Chloride 106 mmol/L (98-107) Carbon Dioxide 18 L mmol/L (22-30) Anion Gap 10 mmol/L (4-12) BUN 37 H mg/dL (7-17) Creatinine 2.70 H mg/dL (0.7-1.0) Estim Creat Clear Calc 13 ml/min Estimated GFR 18 L (59 - ) Glucose 82 mg/dL (65-110) Calcium 8.6 mg/dL (8.4-10.2) Patient hx anesthesia problems: none Family hx anesthesia problems: none Results Review: All pre-operative results and documents have been reviewed as part of the pre-operative evaluation. [facility] Past Medical History Medical History Kidney stones Family History Family History Sibling Cancer Diabetes mellitus Hypertension Mother Cancer Cerebrovascular accident Father Diabetes mellitus Hypertension Acute myocardial infarction Congestive heart failure Chronic obstructive pulmonary disease Social History Social History Smoking packs per day: 0.5 Smoking cigarettes per day: 10.0 Years smoked: 51 Smoking pack-years: 25.50 Smoking status: Current some day smoker Substance use type: marijuana Last use: 05/02/24 Do You Feel Safe in your Home?: Yes Lack of Transportation: No Lack of Food: Never True Current Housing: I Have Housing Concerned About Future Housing: No Difficulty Paying Gas/Electric Bills: No Difficulty Paying for Meds: No Currently Unemployed: No Education: High School Diploma/GED Difficulty w/ Childcare or Family Care: No Spiritual care concerns: No Anes - Eval Final PreProcedure Day of Procedure 05/05/24 12:54 Patient weight: cachectic and thin Heart: regular rate and rhythm Lungs: clear to auscultation and decreased breath sounds Airway: Mallampati scale and special considerations (Lower teeth very loose in the midline. ) Neurological: alert and oriented Last oral intake: >/= 8 hours ASA classification: IV Emergent: no Anesthetic plan: proceed Anesthesia type and monitoring: general GIVS and standard monitoring Results Review: All pre-operative results and documents have been reviewed as part of the pre-operative evaluation. Hx of PTCA approx , cont to smoke 1/2 ppd, cr 2.7 at this time. Informed Con
[2024-05-05] MEDS: ceFAZolin 2 GM/D5W 50 ML 2 GM/50 ML BAG IVPB (12:58)
--- NOTE | 2024-05-05 13:33 | P.OP_ITS ---
Procedure Note - Detailed Date of Procedure 05/05/24 Pre-op Diagnosis Bilateral hydronephrosis, ERIC Post-op Diagnosis Same Procedure Performed Cystoscopy, left ureteral stent placement, attempted right ureteral stent placement Surgeon Santino Zeng MD Anesthesia General Description of Procedure Just prior to this procedure I was able to converse with patient's family members for the 1st time. They report that within the last year she has had extensive procedures for urothelial carcinoma the bladder and is known to have had scar tissue overlying her right ureter. With cystoscopy I see she has extensive calcifications involving the wall of the right camilo trigone. Attempted to scrape some of these calcifications off and identify the right ureteral orifice without success. There is no sherwin neoplasm in that portion, or elsewhere, in the bladder. I was able to identify her left ureteral orifice but she has an extremely tight strictured area in the intramural portion. I was able to traverse a guidewire and then, with great difficulty, dilate to 8 F. I was unable to place any kind of catheter through which I could obtain a retrograde pyelogram. It feels as if there is is his stay very tight strictured area in the distal most left ureter involving the intramural ureter. I was able to place a 6 F variable length stent with the proximal coil in the renal pelvis distal coil in the bladder. Scopes and wires removed and a 16 F Fuentes catheter was replaced. If patient's renal function does not improve with a solitary left stent she may require placement of a right percutaneous nephrostomy tube. If renal function improves she can follow-up with her urologist in [facility] for definitive intervention.
[2024-05-05] MEDS: LACTATED RINGERS 1,000 ML 30 ML IV CONT (13:38)
[2024-05-05] MEDS: fentaNYL CITRATE INJ (*CRX) 100 MCG/2 ML VIAL 25 MCG IV PUSH ×3 (13:53→14:12)
[2024-05-05] MEDS: HYDROcodone/acetaminophen (*CRX) 5-325 MG TABLET 1 TAB PO (15:13)
[2024-05-05] MEDS: DOCUSATE SODIUM 100 MG CAPSULE PO (20:20)
[2024-05-05] MEDS: ROSUVASTATIN 20 MG TABLET 40 MG PO (20:20)
[2024-05-06] VITALS (11 sets, daily range): BP systolic 136–164; BP diastolic 45–60; PULSE 63–89; RESP 16–20; TEMP 36.8–37.6; O2SAT 98–100
--- NOTE | 2024-05-06 07:47 | PM.IMPN ---
Progress Note: A&P Assessment and Plan (1) Bilateral hydronephrosis: Code(s): N13.30 - Unspecified hydronephrosis Status: Acute Assessment and Plan: Noted to have mild right and moderate left hydronephrosis extending to bladder with possible ureteral obstruction. Renal scan demonstrates bilateral high-grade obstruction. Creatinine remains elevated, unchanged since admission at 2.7. Continue NPO diet and will plan for cystoscopy, retrograde pyelogram, bilateral ureteral stent placement this afternoon. 05/06- cystoscopy yesterday with DR Zeng- difficulties due to an extremely tight strictured area in the intramural portion to left ureteral orifice but she has If patient's renal function does not improve with a solitary left stent she may require placement of a right percutaneous nephrostomy tube. If renal function improves she can follow-up with her urologist in [facility] for definitive intervention. (2) ERIC (acute kidney injury): Code(s): N17.9 - Acute kidney failure, unspecified Status: Acute Assessment and Plan: Creatinine persistently elevated 2.7. Baseline is unknown. - continue to monitor- see urology recommendations above Time Spent With Patient Time with patient: Greater than 35 minutes Subjective Date/time seen: 05/06/24 07:47 Interval history: abnormal lab work Narrative retrieved from H/P: This is a 64-year-old female with past medical history significant for hypertension, peripheral vascular disease, chronic kidney disease, chronic wound of the foot, patient is also status post toe amputation of the right foot. Presents to the emergency room for evaluation due to abnormal lab work with increased creatinine. Patient denies any fevers, rigors, chills, nausea, vomiting, denies taking antibiotics, denies diarrhea. Patient Age has a creatinine of 2.7. Primary care physicians sent her over for further workup. 05/03- pt is seen and examined today. she is resting in bed- voicing no complains 05/04- BP high- amlodipine daily, Hydralazine IV prn. Renal ultrasound repeat possibly today. She is very cranky as feels constipated and uncomfortable. 05/05- Cystoscopy, left ureteral stent placement, attempted right ureteral stent placement 05/06 pt is seen and examined. she is doing well- wants to go home but waiting for repeat labs per urology Review of Systems Review of Systems: Abnormal lab work All systems reviewed & are unremarkable except as noted in HPI and below ROS unobtainable: Yes other ( patient is a poor historian unable to contribute in a meaningful way ) Exam Narrative: General: Awake, alert, comfortable, no acute distress HEENT: Normocephalic, atraumatic, sclerae anicteric Respiratory: Normal respiratory effort, no accessory muscle use Abdomen: Nondistended, soft, nontender : Fuentes catheter draining tea-colored urine Skin: Normal coloration, warm and dry Neurologic: No focal neuro deficits noted Psychiatric: Appropriate mood and affect, judgment and insight intact Const: General: comfortable, no acute distress, well developed, alert, awake, ill appearing chronically, average body habitus and underweight Nutritional Appearance: average body habitus and underweight Orientation/consciousness: patient oriented x3 Other: patient looks older than stated age HENMT: Head: normal to inspection, normocephalic and atraumatic Ears: hearing grossly normal bilaterally Face/Nose/Sinus: normal facial exam Face and sinus: normal facial exam Eyes: General: appearance normal, both eyes and all related structures Pupils: Equal, round and reactive pupils present EOM: EOMs intact bilaterally Neck: Neck: full ROM, no lymphadenopathy and no JVD Thyroid: thyroid normal Lymphatic: no lymphadenopathy noted Resp: Effort & Inspection: normal respiratory effort and able to speak in complete sentences Auscultation: clear to auscultation bilaterally
--- NOTE | 2024-05-06 08:41 | WPDUROPN2 ---
Progress Note: A&P Assessment and Plan (1) Bilateral hydronephrosis: Code(s): N13.30 - Unspecified hydronephrosis Status: Acute Assessment and Plan: Left ureteral stent placed by Dr. Zeng yesterday. It was a difficult placement. Unable to place right ureteral stent. blood work is not been drawn yet for evaluation of creatinine level. She is feeling well and asymptomatic. She does have an out side urologist to his been addressing her bladder carcinoma. we will see what creatinine level shows. If improved or even stable may discharge home and have the right hydronephrosis addressed prior primary urologist. This appears to been a longstanding problem. If worsening renal function may need a right percutaneous nephrostomy tube. Subjective Subjective Date/Time Seen: 05/06/24 08:41 Post Op day: 1 (Left ureteral stent placement) Principal diagnosis: bilateral hydronephrosis most likely chronic in nature with elevated creat Interval history: Adelaida feels well today. Labs have not been drawn as of yet. She is status post left stent placement. Unsuccessful placement of right ureteral stent. She denies any flank pain. Review of Systems Review of Systems: All systems reviewed & are unremarkable except as noted in HPI and below Exam Const: General: cooperative and comfortable Resp: Effort & Inspection: normal respiratory effort Cardio: Rate: regular rate Rhythm: regular rhythm Objective Data Vital Signs Vital Signs: Vital Signs - 24 hr 05/05/24 11:00 05/05/24 12:15 05/05/24 13:38 Temperature 37.2 C 36.8 C Pulse Rate 82 80 Respiratory Rate 18 14 Blood Pressure 122/65 183/80 H Pulse Oximetry 100 100 Oxygen Delivery Room Air Room Air Simple Face Mask Oxygen Flow Rate 8 Fraction of Inspired Oxygen 05/05/24 13:50 05/05/24 14:05 05/05/24 14:20 Temperature Pulse Rate 82 83 76 Respiratory Rate 12 12 20 Blood Pressure 185/76 H 175/69 H 175/70 H Pulse Oximetry 100 100 100 Oxygen Delivery Simple Face Mask Room Air Room Air Oxygen Flow Rate 8 Fraction of Inspired Oxygen 05/05/24 14:35 05/05/24 14:50 05/05/24 15:12 Temperature 36.6 C 36.9 C Pulse Rate 80 81 78 Respiratory Rate 13 19 16 Blood Pressure 189/82 H 178/69 H 176/58 H Pulse Oximetry 99 100 99 Oxygen Delivery Room Air Room Air Oxygen Flow Rate Fraction of Inspired Oxygen 05/05/24 15:27 05/05/24 16:00 05/05/24 16:00 Temperature 36.9 C 36.8 C Pulse Rate 76 73 79 Respiratory Rate 16 16 Blood Pressure 170/63 H 165/55 H Pulse Oximetry 99 98 Oxygen Delivery Oxygen Flow Rate Fraction of Inspired Oxygen 05/05/24 17:22 05/05/24 20:28 05/05/24 20:00 Temperature 37.0 C 36.5 C Pulse Rate 76 81 81 Respiratory Rate 18 18 18 Blood Pressure 162/62 H 175/54 H Pulse Oximetry 100 99 99 Oxygen Delivery Room Air Oxygen Flow Rate Fraction of Inspired Oxygen 21 05/05/24 20:00 05/06/24 00:00 05/06/24 05:27 Temperature 37.0 C Pulse Rate 76 63 77 Respiratory Rate 20 Blood Pressure 164/59 H Pulse Oximetry 99 Oxygen Delivery Oxygen Flow Rate Fraction of Inspired Oxygen Intake/Output Intake/Output: Intake & Output 05/03/24 05/04/24 05/05/24 05/06/24 23:59 23:59 23:59 23:59 Intake Total 200 620 210 290 Output Total 450 1800 350 350 Balance -250 -1180 -140 -60 Meds/Results Medications: Active Medications Generic Name Dose Route Start Last Admin Trade Name Freq PRN Reason Stop Dose Admin Hydrocodone Bitart/Acetaminophen 1 tab 05/05/24 15:03 05/05/24 15:13 Hydrocodone/Acetaminophen (*Crx) 5-325 Mg Tablet PO 1 tab Q6H PRN Administration Pain Rated 4-6 Amlodipine Besylate 10 mg 05/03/24 01:40 05/05/24 11:05 Amlodipine Besylate 10 Mg Tablet PO 06/02/24 08:59 10 mg DAILY HIREN Administration Aspirin 81 mg 05/03/24 09:00 05/05/24 13:43 Aspirin 81 Mg Enteric Tablet PO Not Given DAILY HIREN Bisacodyl 10 mg
[2024-05-06] MEDS: SERTRALINE HCL 25 MG TABLET PO (08:48)
[2024-05-06] MEDS: ASPIRIN 81 MG ENTERIC TABLET PO (08:48)
[2024-05-06] MEDS: DOCUSATE SODIUM 100 MG CAPSULE PO ×2 (08:48→21:03)
[2024-05-06] MEDS: hydrALAZINE 10 MG TABLET PO ×3 (08:48→17:40)
[2024-05-06] MEDS: GABAPENTIN 400 MG CAPSULE PO ×3 (08:48→17:40)
[2024-05-06] MEDS: amLODIPine BESYLATE 10 MG TABLET PO (08:48)
[2024-05-06] MEDS: CLOPIDOGREL BISULFATE 75 MG TABLET PO (08:48)
[2024-05-06 08:54] LABS: Hematocrit 26.3 % (37.0-47.0); Mean Corpuscular HGB Conc 34.2 g/dl (32-36); Mean Corpuscular Hemoglobin 34.1 pg (26-34); Mean Corpuscular Volume 99.6 fl (80-100); Mean Platelet Volume 9.9 fl (7.4-10.4); Platelet Count Result 198 k/mm3 (150-375); Red Blood Count 2.64 M/mm3 (4.2-5.4); Red Cell Distribution Width 13.8 % (11.5-14.5); White Blood Count 13.1 K/mm3 (4.5-10.0)
--- NOTE | 2024-05-06 09:06 | WPDANESPN ---
Anes - Prog Note Post-Op Date/Time: 05/06/24 09:06 Cardiovascular status: normal Respiratory status: normal Airway patency: baseline Mental status: baseline Post-Op hydration status: normal Vital Signs: Last Vital Signs Temp 37.0 C 05/06/24 05:27 Pulse 77 05/06/24 05:27 Resp 20 05/06/24 05:27 BP 164/59 H 05/06/24 05:27 Pulse Ox 99 05/06/24 05:27 O2 Del Method Room Air 05/05/24 20:00 O2 Flow Rate 8 05/05/24 13:50 FiO2 21 05/05/24 20:00 Pain Score (VAS): 09/18 I/O: Intake & Output 05/05/24 05/06/24 05/06/24 23:59 07:59 15:59 Intake Total 110 290 Output Total 350 350 Balance -240 -60 Laboratory Tests 05/06/24 08:45 05/06/24 08:45 WBC 13.1 H RBC 2.64 L Hgb 9.0 L Hct 26.3 L MCV 99.6 MCH 34.1 H MCHC 34.2 RDW 13.8 Plt Count 198 MPV 9.9 Sodium Pending Potassium Pending Chloride Pending Carbon Dioxide Pending Anion Gap Pending BUN Pending Creatinine Pending Estim Creat Clear Calc Pending Estimated GFR Pending Glucose Pending Calcium Pending Total Bilirubin Pending AST Pending ALT Pending Alkaline Phosphatase Pending Total Protein Pending Albumin Pending Post-procedural complaints: none Patient Feedback: Patient satisfied with anesthetic care.
[2024-05-06 09:09] LABS: Alanine Aminotransferase 8 U/L (6-35); Albumin Level 3.4 g/dL (3.5-5.1); Alkaline Phosphatase 76 U/L (38-126); Anion Gap 10 mmol/L (4-12); Aspartate Amino Transferase 27 U/L (14-36); Bilirubin,Total 0.2 mg/dL (0.2-1.3); Blood Urea Nitrogen 46 mg/dL (7-17); Calcium 8.5 mg/dL (8.4-10.2); Carbon Dioxide 20 mmol/L (22-30); Chloride 105 mmol/L (98-107); Estimated CRCL calculation 12 ml/min; Estimated Glomerular Filt Rate 16; Glucose 107 mg/dL (65-110); Potassium 3.6 mmol/L (3.4-5.0); Sodium 135 mmol/L (137-145)
--- NOTE | 2024-05-06 10:37 | PM.IMPN ---
Progress Note: A&P Assessment and Plan (1) Bilateral hydronephrosis: Code(s): N13.30 - Unspecified hydronephrosis Status: Acute Assessment and Plan: Noted to have mild right and moderate left hydronephrosis extending to bladder with possible ureteral obstruction. Renal scan demonstrates bilateral high-grade obstruction. Creatinine remains elevated, unchanged since admission at 2.7. Continue NPO diet and will plan for cystoscopy, retrograde pyelogram, bilateral ureteral stent placement this afternoon. 05/05 possible cystoscopy 05/06- cystoscopy yesterday with DR Zeng- difficulties due to an extremely tight strictured area in the intramural portion to left ureteral orifice but she has If patient's renal function does not improve with a solitary left stent she may require placement of a right percutaneous nephrostomy tube. If renal function improves she can follow-up with her urologist in [facility] for definitive intervention. (2) ERIC (acute kidney injury): Code(s): N17.9 - Acute kidney failure, unspecified Status: Acute Assessment and Plan: Creatinine persistently elevated 2.7. Baseline is unknown. - continue to monitor- see urology recommendations above Time Spent With Patient Time with patient: Greater than 35 minutes Subjective Date/time seen: 05/05/24 10:37 Interval history: Adelaida feels well this am. awaiting urology for a possible procedure Review of Systems Review of Systems: Abnormal lab work All systems reviewed & are unremarkable except as noted in HPI and below ROS unobtainable: Yes other ( patient is a poor historian unable to contribute in a meaningful way ) Exam Narrative: General: Awake, alert, comfortable, no acute distress HEENT: Normocephalic, atraumatic, sclerae anicteric Respiratory: Normal respiratory effort, no accessory muscle use Abdomen: Nondistended, soft, nontender : Fuentes catheter draining tea-colored urine Skin: Normal coloration, warm and dry Neurologic: No focal neuro deficits noted Psychiatric: Appropriate mood and affect, judgment and insight intact Const: General: comfortable, no acute distress, well developed, alert, awake, ill appearing chronically, average body habitus and underweight Nutritional Appearance: average body habitus and underweight Orientation/consciousness: patient oriented x3 Other: patient looks older than stated age HENMT: Head: normal to inspection, normocephalic and atraumatic Ears: hearing grossly normal bilaterally Face/Nose/Sinus: normal facial exam Face and sinus: normal facial exam Eyes: General: appearance normal, both eyes and all related structures Pupils: Equal, round and reactive pupils present EOM: EOMs intact bilaterally Neck: Neck: full ROM, no lymphadenopathy and no JVD Thyroid: thyroid normal Lymphatic: no lymphadenopathy noted Resp: Effort & Inspection: normal respiratory effort and able to speak in complete sentences Auscultation: clear to auscultation bilaterally Cardio: Jugular venous distension: no JVD Rate: regular rate Rhythm: regular rhythm Heart sounds: S1 normal heart sound present and S2 normal heart sound present : General: Yes deferred Skin: Rashes: no rashes Wounds: no wounds Neuro: General: patient oriented x3, CN's II-XI intact bilaterally and Unable to assess gait Cranial nerves: Yes CN's II-XII intact bilaterally and Yes Equal, round and reactive pupils present Cognition (Neuro): normal cognition Speech: normal speech Gait exam (Neuro): Unable to assess gait Motor exam (neuro): 5/5 motor strength present throughout Extrem: General: normal to inspection, full ROM, no joint enlargement and no pedal edema Other: patient is status post toe amputation of the right foot dressing in place Objective Data Vital Signs Vital Signs: Vital Signs - 24 hr 05/05/24 11:00 05/05/24 12:15 05/05/24 13:38 Temperature 99.0 F 98.2
[2024-05-06] MEDS: ROSUVASTATIN 20 MG TABLET 40 MG PO (21:03)
[2024-05-07] VITALS (10 sets, daily range): BP systolic 130–166; BP diastolic 46–83; PULSE 54–74; RESP 16–17; TEMP 36.4–37.1; O2SAT 99–100
[2024-05-07 08:05] LABS: Hematocrit 25.5 % (37.0-47.0); Hemoglobin 8.7 g/dL (12.0-15.0); Mean Corpuscular HGB Conc 34.1 g/dl (32-36); Mean Corpuscular Hemoglobin 33.9 pg (26-34); Mean Corpuscular Volume 99.2 fl (80-100); Mean Platelet Volume 10.1 fl (7.4-10.4); Platelet Count Result 186 k/mm3 (150-375); Red Blood Count 2.57 M/mm3 (4.2-5.4); Red Cell Distribution Width 13.9 % (11.5-14.5); White Blood Count 9.3 K/mm3 (4.5-10.0)
[2024-05-07 08:19] LABS: Anion Gap 5 mmol/L (4-12); Blood Urea Nitrogen 49 mg/dL (7-17); Calcium 8.1 mg/dL (8.4-10.2); Carbon Dioxide 22 mmol/L (22-30); Chloride 109 mmol/L (98-107); Estimated CRCL calculation 11 ml/min; Estimated Glomerular Filt Rate 14; Glucose 88 mg/dL (65-110); Potassium 3.5 mmol/L (3.4-5.0); Sodium 136 mmol/L (137-145)
--- NOTE | 2024-05-07 10:16 | PM.IMPN ---
Progress Note: A&P Assessment and Plan (1) Bilateral hydronephrosis: Code(s): N13.30 - Unspecified hydronephrosis Status: Acute Assessment and Plan: Noted to have mild right and moderate left hydronephrosis extending to bladder with possible ureteral obstruction. Renal scan demonstrates bilateral high-grade obstruction. Creatinine remains elevated, unchanged since admission at 2.7. Continue NPO diet and will plan for cystoscopy, retrograde pyelogram, bilateral ureteral stent placement this afternoon. 05/06- cystoscopy yesterday with DR Zeng- difficulties due to an extremely tight strictured area in the intramural portion to left ureteral orifice but she has If patient's renal function does not improve with a solitary left stent she may require placement of a right percutaneous nephrostomy tube. If renal function improves she can follow-up with her urologist in [facility] for definitive intervention. 05/07- nephrology consulted- npo at mightnight (2) ERIC (acute kidney injury): Code(s): N17.9 - Acute kidney failure, unspecified Status: Acute Assessment and Plan: Creatinine persistently elevated 2.7. Baseline is unknown. - continue to monitor- see urology recommendations above 05/07- worsening of kidney function - urology is notified nephrology consulted, npo at midnight Time Spent With Patient Time with patient: Greater than 35 minutes Subjective Date/time seen: 05/07/24 10:16 Interval history: Abnormal lab work Narrative retrieved from H/P: This is a 64-year-old female with past medical history significant for hypertension, peripheral vascular disease, chronic kidney disease, chronic wound of the foot, patient is also status post toe amputation of the right foot. Presents to the emergency room for evaluation due to abnormal lab work with increased creatinine. Patient denies any fevers, rigors, chills, nausea, vomiting, denies taking antibiotics, denies diarrhea. Patient Age has a creatinine of 2.7. Primary care physicians sent her over for further workup. 05/03- pt is seen and examined today. she is resting in bed- voicing no complains 05/04- BP high- amlodipine daily, Hydralazine IV prn. Renal ultrasound repeat possibly today. She is very cranky as feels constipated and uncomfortable. 05/05 - Cystoscopy, left ureteral stent placement, attempted right ureteral stent placement 05/06 pt is seen and examined. she is doing well- wants to go home but waiting for repeat labs per urology 05/07 - in bed, c/o constipation-reports no BM x 2 days. Worsening of renal function - pt and family updated. Nephology is consulted- npo at midnight Review of Systems Review of Systems: All systems reviewed & are unremarkable except as noted in HPI and below ROS unobtainable: Yes other ( patient is a poor historian unable to contribute in a meaningful way ) Exam Narrative: General: Awake, alert, comfortable, no acute distress HEENT: Normocephalic, atraumatic, sclerae anicteric Respiratory: Normal respiratory effort, no accessory muscle use Abdomen: Nondistended, soft, nontender : Fuentes catheter draining tea-colored urine Skin: Normal coloration, warm and dry Neurologic: No focal neuro deficits noted Psychiatric: Appropriate mood and affect, judgment and insight intact Const: General: comfortable, no acute distress, well developed, alert, awake, ill appearing chronically, average body habitus and underweight Nutritional Appearance: average body habitus and underweight Orientation/consciousness: patient oriented x3 Other: patient looks older than stated age HENMT: Head: normal to inspection, normocephalic and atraumatic Ears: hearing grossly normal bilaterally Face/Nose/Sinus: normal facial exam Face and sinus: normal facial exam Eyes: General: appearance normal, both eyes and all related structures Pupils: Equal, round and reactive pupils present EOM: EOMs
[2024-05-07] MEDS: ASPIRIN 81 MG ENTERIC TABLET PO (10:22)
[2024-05-07] MEDS: hydrALAZINE 10 MG TABLET PO ×3 (10:22→18:29)
[2024-05-07] MEDS: GABAPENTIN 400 MG CAPSULE PO ×3 (10:22→18:27)
[2024-05-07] MEDS: amLODIPine BESYLATE 10 MG TABLET PO (10:22)
[2024-05-07] MEDS: SERTRALINE HCL 25 MG TABLET PO (10:23)
[2024-05-07] MEDS: polyethylene glycoL 3350 17 GM POWD.PACK PO (10:23)
[2024-05-07] MEDS: DOCUSATE SODIUM 100 MG CAPSULE PO ×2 (10:23→20:09)
[2024-05-07] MEDS: CLOPIDOGREL BISULFATE 75 MG TABLET PO (10:23)
--- NOTE | 2024-05-07 10:34 | WPDUROPN2 ---
Progress Note: A&P Assessment and Plan (1) Bilateral hydronephrosis: Code(s): N13.30 - Unspecified hydronephrosis Status: Acute Assessment and Plan: Patient was stent on the left side. She has right hydronephrosis and inability to locate right ureteral orifice. Given her worsening renal function she will obtain a nephrology consult. In addition will repeat CT scan to evaluate the hydronephrosis on the right but as well to see if the left side has improved. She will need a right nephrostomy tube at the minimum and determination of whether left 1 needs to be placed. NPO after midnight. Interventional Radiology will need to hopefully schedule sometime tomorrow. (2) ERIC (acute kidney injury): Code(s): N17.9 - Acute kidney failure, unspecified Status: Acute Assessment and Plan: See above Subjective Subjective Date/Time Seen: 05/07/24 10:34 Post Op day: 2 (Left ureteral stent placement) Principal diagnosis: Bilateral hydronephrosis with renal insufficiency Interval history: Adelaida actually is without any significant complaints. She is making urine but her renal function is worsening. Is now progressively gone up to 3.2. She is making urine but has known right hydronephrosis. Review of Systems Review of Systems: All systems reviewed & are unremarkable except as noted in HPI and below Exam Const: General: cooperative and comfortable Resp: Effort & Inspection: normal respiratory effort Cardio: Rate: regular rate Objective Data Vital Signs Vital Signs: Vital Signs - 24 hr 05/06/24 12:00 05/06/24 12:50 05/06/24 16:00 Temperature 36.8 C Pulse Rate 89 78 67 Respiratory Rate 16 Blood Pressure 152/60 H Pulse Oximetry 98 Oxygen Delivery 05/06/24 17:39 05/06/24 19:45 05/06/24 21:55 Temperature 37.6 C H 37.3 C Pulse Rate 75 72 65 Respiratory Rate 16 20 Blood Pressure 141/56 H 139/47 L 136/45 L Pulse Oximetry 99 100 Oxygen Delivery 05/06/24 21:03 05/06/24 20:01 05/07/24 00:00 Temperature Pulse Rate 72 70 Respiratory Rate Blood Pressure Pulse Oximetry 100 Oxygen Delivery Room Air 05/07/24 04:01 05/07/24 05:21 05/07/24 10:21 Temperature 37.1 C Pulse Rate 71 69 Respiratory Rate 16 Blood Pressure 145/46 H 151/54 H Pulse Oximetry 100 Oxygen Delivery Intake/Output Intake/Output: Intake & Output 05/04/24 05/05/24 05/06/24 05/07/24 23:59 23:59 23:59 23:59 Intake Total 620 210 410 370 Output Total 1061 378 2967 875 Balance -1180 -140 -590 -505 Meds/Results Medications: Active Medications Generic Name Dose Route Start Last Admin Trade Name Freq PRN Reason Stop Dose Admin Hydrocodone Bitart/Acetaminophen 1 tab 05/05/24 15:03 05/05/24 15:13 Hydrocodone/Acetaminophen (*Crx) 5-325 Mg Tablet PO 1 tab Q6H PRN Administration Pain Rated 4-6 Amlodipine Besylate 10 mg 05/03/24 01:40 05/07/24 10:22 Amlodipine Besylate 10 Mg Tablet PO 06/02/24 08:59 10 mg DAILY HIREN Administration Aspirin 81 mg 05/03/24 09:00 05/07/24 10:22 Aspirin 81 Mg Enteric Tablet PO 81 mg DAILY HIREN Administration Bisacodyl 10 mg 05/04/24 10:43 05/04/24 17:41 Bisacodyl 10 Mg Suppository RECTAL 10 mg QAM PRN Administration Constipation Clopidogrel Bisulfate 75 mg 05/03/24 09:00 05/07/24 10:23 Clopidogrel Bisulfate 75 Mg Tablet PO 75 mg DAILY HIREN Administration Docusate Sodium 100 mg 05/04/24 09:00 05/07/24 10:23 Docusate Sodium 100 Mg Capsule PO 100 mg Q12HR HIREN Administration Gabapentin 400 mg 05/03/24 09:00 05/07/24 10:22 Gabapentin 400 Mg Capsule PO 400 mg TID HIREN Administration Hydralazine HCl 10 mg 05/05/24 09:00 05/07/24 10:22 Hydralazine 10 Mg Tablet PO 10 mg TID HIREN Administration Nitroglycerin 0.4 mg 05/03/24 01:20 Nitroglycerin Sl 0.4 Mg Tablet SUBLINGUAL Q5MIN PRN CHEST PAIN Ondansetron HCl 4 mg 05/03/24 02:3
--- NOTE | 2024-05-07 13:06 | PM.CNNEP ---
Assessment and Plan Assessment and plan (1) ERIC (acute kidney injury): Code(s): N17.9 - Acute kidney failure, unspecified Status: Acute Assessment and Plan: normal baseline creatinine in June 2023 no previous labs in the interim expect in April 2024: 04/20/24 - creatinine 3.7mg/dl 04/23/24 - creatinine 3.0mg/dl 05/02/24 - creatinine 2.7mg/dl multifactorial etiology: obstructive uropathy/bilateral hydronephrosis diuretic therapy (HCTZ + spironolactone) GLO-I use prerenal factors (?) other (?) check urine studies and CPK agree with holding GLO-I and diuretics for now follow trend of repeat labs and UOP (2) Bilateral hydronephrosis: Code(s): N13.30 - Unspecified hydronephrosis Status: Acute Assessment and Plan: admission imaging noted -- outpatient imaging on 04/23 noted this issue as well. byrnes catheter in place s/p cystoscopy with left ureteral stent placement unable to place right ureteral stent (unable to identify right ureteral orifice) noted plans for possible right nephrostomy tube placement Urology following (3) Hypertension: Code(s): I10 - Essential (primary) hypertension Status: Chronic Assessment and Plan: diuretics and GLO-I on hold due to #1 on oral hydralazine will add back home medication of amlodipine follow trend of hemodynamics (4) Anemia: Code(s): D64.9 - Anemia, unspecified Status: Acute Assessment and Plan: due to ERCI and possible acute illness follow trend of H/H check iron studies consider HEATHER while hospitalized I will continue to follow the patient with you while she remains hospitalized and make further recommendations as deemed necessary. Thank you for allowing me to participate in the care of this patient. History of Present Illness Reason for Consult Consult date: 05/07/24 Reason for consult: acute renal failure Chief Complaint Chief complaint: ERIC, Postrenal obstruction History of Present Illness Narrative: The patient is a 64-year-old female with a past medical history as outlined below who presented to [facility] Emergency Room several days ago at the behest of her primary care physician due to abnormal labs with regard to her kidney function. Unfortunately, the patient is not the best historian so a lot of the information I have obtained is from review of the electronic medical record as well as discussion with the physician / nurses involved in the patient's care and discussion with laboratory department of [facility]. it would seem the patient's kidney function over this last month has been fluctuating ranging anywhere from 2.7 mg/dL to as high as 3.7 mg/dL. She does have a known history of kidney stones and has had bouts of obstructive uropathy in the last couple of years including June of 2023 as well as February of 2024. Due to her fluctuating kidney function, she had an outpatient CT scan of the abdomen pelvis done on 04/23/2024 which demonstrated bilateral moderate hydronephrosis and hydroureter extending to the level urinary bladder - stable on the left but new on the right; an unchanged 2 x 1 cm rectangular focus of calcification along the posterior aspect of the urinary bladder on the right; left ureter vesicular junction 0.5 cm stone, unchanged; prominent renal vascular calcification bilaterally. I am unclear if anything was done about the CT scan findings. She also reports a chronic right foot wound that is being cared for which apparently seems to be doing reasonably well. Furthermore, she also reports that her blood pressure has been running on the higher side recently as well. In any case, she mainly came to the ER due to the reported abnormality in her kidney function. Workup and evaluation in the emergency room demonstrated the patient in no apparent distress with stable hemodynamics and no fever. Routine blood te
--- NOTE | 2024-05-07 13:06 | P.CONNP_ITS ---
Assessment and Plan Assessment and plan (1) ERIC (acute kidney injury): Code(s): N17.9 - Acute kidney failure, unspecified Status: Acute Assessment and Plan: * normal baseline creatinine in June 2023 * no previous labs in the interim expect in April 2024: * 04/20/24 - creatinine 3.7mg/dl * 04/23/24 - creatinine 3.0mg/dl * 05/02/24 - creatinine 2.7mg/dl * multifactorial etiology: * obstructive uropathy/bilateral hydronephrosis * diuretic therapy (HCTZ + spironolactone) * GLO-I use * prerenal factors (?) * other (?) * check urine studies and CPK * agree with holding GLO-I and diuretics for now * follow trend of repeat labs and UOP (2) Bilateral hydronephrosis: Code(s): N13.30 - Unspecified hydronephrosis Status: Acute Assessment and Plan: * admission imaging noted -- outpatient imaging on 04/23 noted this issue as well. * byrnes catheter in place * s/p cystoscopy with left ureteral stent placement * unable to place right ureteral stent (unable to identify right ureteral orifice) * noted plans for possible right nephrostomy tube placement * Urology following (3) Hypertension: Code(s): I10 - Essential (primary) hypertension Status: Chronic Assessment and Plan: * diuretics and GLO-I on hold due to #1 * on oral hydralazine * will add back home medication of amlodipine * follow trend of hemodynamics (4) Anemia: Code(s): D64.9 - Anemia, unspecified Status: Acute Assessment and Plan: * due to ERIC and possible acute illness * follow trend of H/H * check iron studies * consider HEATHRE while hospitalized I will continue to follow the patient with you while she remains hospitalized and make further recommendations as deemed necessary. Thank you for allowing me to participate in the care of this patient. History of Present Illness Reason for Consult Consult date: 05/07/24 Reason for consult: acute renal failure Chief Complaint Chief complaint: ERIC, Postrenal obstruction History of Present Illness Narrative: The patient is a 64-year-old female with a past medical history as outlined below who presented to [facility] Emergency Room several days ago at the behest of her primary care physician due to abnormal labs with regard to her kidney function. Unfortunately, the patient is not the best historian so a lot of the information I have obtained is from review of the electronic medical record as well as discussion with the physician / nurses involved in the patient's care and discussion with laboratory department of [facility]. it would seem the patient's kidney function over this last month has been fluctuating ranging anywhere from 2.7 mg/dL to as high as 3.7 mg/dL. She does have a known history of kidney stones and has had bouts of obstructive uropathy in the last couple of years including June of 2023 as well as February of 2024. Due to her fluctuating kidney function, she had an outpatient CT scan of the abdomen pelvis done on 04/23/2024 which demonstrated bilateral moderate hydronephrosis and hydroureter extending to the level urinary bladder - stable on the left but new on the right; an unchanged 2 x 1 cm rectangular focus of calcification along the posterior aspect of the urinary bladder on the right; left ureter vesicular junction 0.5 cm stone, unchanged; prominent renal vascular calcification bilaterally. I am unclear if anything was done about the CT scan findings. She also reports a chronic right foot wound that is being cared for which appa
--- NOTE | 2024-05-07 14:14 | PC.NURSE ---
pt taken down to CT
--- NOTE | 2024-05-07 14:28 | PC.NURSE ---
pt returned to room from CT
[2024-05-07] MEDS: oxyBUTYnin CHLORIDE 5 MG TABLET PO (18:27)
[2024-05-07] MEDS: HYDROcodone/acetaminophen (*CRX) 5-325 MG TABLET 1 TAB PO (20:08)
[2024-05-07] MEDS: ROSUVASTATIN 20 MG TABLET 40 MG PO (20:09)
[2024-05-07 20:19] LABS: Prothrombin Time 14.1 Seconds (11.1-14.7)
[2024-05-07 20:20] LABS: Partial Thromboplastin Time 34.6 Seconds (22.3-36.8)
[2024-05-07 22:02] LABS: Creatinine Urine 29.3 mg/dL; Urea Random Urine 259 MG/DL
[2024-05-07 22:07] LABS: Creatinine Urine 28.8 mg/dL
[2024-05-07 22:16] LABS: Sodium Urine Random 59 meq/L
[2024-05-07 22:28] LABS: Eosinophil Urine None Seen % (None Seen); Urine Eos QC 2nd Tech Confirmed
[2024-05-07 22:42] LABS: Total Protein Urine Random 517 mg/dL
[2024-05-07 22:44] LABS: Total Protein Urine Random 517 mg/dL; Ur Ttl Prot Creatinine Ratio 17.95 mg/mg (0-0.20)
[2024-05-08] VITALS (13 sets, daily range): BP systolic 134–156; BP diastolic 47–56; PULSE 59–66; RESP 16–18; TEMP 36.5–36.8; O2SAT 100
--- NOTE | 2024-05-08 05:02 | PC.NURSE ---
Fuentes found in bed with pt with balloon deflated. Pt bedpad wet. Fuentes left out at this time.
[2024-05-08] MEDS: HYDROcodone/acetaminophen (*CRX) 5-325 MG TABLET 1 TAB PO ×2 (05:27→14:12)
[2024-05-08 05:46] LABS: Basophils Absolute Auto 0.1 K/mm3 (0.0-0.1); Eosinophils Absolute Auto 0.5 K/mm3 (0-0.3); Hemoglobin 8.1 g/dL (12.0-15.0); Immature Granulocyte Absolute 0.01 K/mm3 (0.00-0.031); Immature Granulocyte Percent A 0.1 % (0-0.5); Lymphocytes Absolute Auto 2.25 K/mm3 (0.9-3.2); Lymphocytes Percent Auto 28.1 % (18.3-44.2); Mean Corpuscular HGB Conc 33.8 g/dl (32-36); Mean Corpuscular Hemoglobin 33.9 pg (26-34); Mean Corpuscular Volume 100.4 fl (80-100); Mean Platelet Volume 10.8 fl (7.4-10.4); Monocytes Absolute Auto 0.4 K/mm3 (0.1-0.6); Monocytes Percent Auto 5.2 % (2.6-8.5); Neutrophils Absolute Auto 4.8 K/mm3 (1.3-6.7); Neutrophils Percent Auto 59.6 % (45.5-73.1); Platelet Count Result 195 k/mm3 (150-375); Red Blood Count 2.39 M/mm3 (4.2-5.4); Red Cell Distribution Width 13.7 % (11.5-14.5)
[2024-05-08 05:52] LABS: Alkaline Phosphatase 70 U/L (38-126); Anion Gap 6 mmol/L (4-12); Aspartate Amino Transferase 23 U/L (14-36); Bilirubin,Total 0.1 mg/dL (0.2-1.3); Blood Urea Nitrogen 50 mg/dL (7-17); Calcium 7.7 mg/dL (8.4-10.2); Carbon Dioxide 21 mmol/L (22-30); Chloride 109 mmol/L (98-107); Creatine Kinase 144 U/L (30-135); Estimated CRCL calculation 11 ml/min; Estimated Glomerular Filt Rate 14; Glucose 82 mg/dL (65-110); Magnesium 2.2 mg/dL (1.6-2.3); Potassium 3.5 mmol/L (3.4-5.0); Sodium 136 mmol/L (137-145)
[2024-05-08 05:53] LABS: INR 1.2; Prothrombin Time 15.3 Seconds (11.1-14.7)
[2024-05-08 06:32] LABS: Alanine Aminotransferase < 6 U/L (6-35)
[2024-05-08] MEDS: SERTRALINE HCL 25 MG TABLET PO (08:50)
[2024-05-08] MEDS: amLODIPine BESYLATE 10 MG TABLET PO (08:50)
[2024-05-08] MEDS: hydrALAZINE 10 MG TABLET PO ×2 (08:51→17:39)
--- NOTE | 2024-05-08 09:35 | WPDUROPN2 ---
Progress Note: A&P Assessment and Plan (1) Bilateral hydronephrosis: Code(s): N13.30 - Unspecified hydronephrosis Status: Acute Assessment and Plan: Bilateral hydronephrosis with high-grade obstruction evident on Lasix renal scan and persistently elevated creatinine S/p left ureteral stent placement on 05/05/2024. Right ureteral stent unable to be placed as right ureteral orifice not visible. Repeat CT of the abdomen/pelvis showed right hydronephrosis with dilated right ureter Will plan for CT guided right percutaneous nephrostomy tube placement today per IR. Continue NPO diet Will need to follow-up with her established urologist in [place] for definitive management (2) ERIC (acute kidney injury): Code(s): N17.9 - Acute kidney failure, unspecified Status: Acute Assessment and Plan: Creatinine elevated this admission ranging from 2.7-3.3 Will monitor renal function closely following right nephrostomy tube placement Nephrology consultation Subjective Subjective Date/Time Seen: 05/08/24 09:35 Interval history: Adelaida is feeling fair today. Offers no concerns. Her Fuentes catheter became dislodged last night. She denies flank pain or back pain. Family present at bedside. Review of Systems Review of Systems: All systems reviewed & are unremarkable except as noted in HPI and below Exam Narrative: General: Awake, alert, comfortable, no acute distress HEENT: Normocephalic, atraumatic, sclerae anicteric Respiratory: Normal respiratory effort, no accessory muscle use Abdomen: Nondistended, soft, nontender Skin: Normal coloration, warm and dry Neurologic: No focal neuro deficits noted Psychiatric: Appropriate mood and affect, judgment and insight intact Objective Data Vital Signs Vital Signs: Vital Signs - 24 hr 05/07/24 10:21 05/07/24 14:00 05/07/24 12:00 Temperature 97.6 F Pulse Rate 73 73 Respiratory Rate 16 Blood Pressure 151/54 H 166/53 H Pulse Oximetry 100 Oxygen Delivery 05/07/24 10:20 05/07/24 20:04 05/07/24 16:00 Temperature 97.6 F Pulse Rate 54 L 74 Respiratory Rate 17 Blood Pressure 130/83 Pulse Oximetry 99 Oxygen Delivery Room Air 05/07/24 20:00 05/08/24 00:00 05/08/24 04:00 Temperature Pulse Rate 64 59 L 65 Respiratory Rate Blood Pressure Pulse Oximetry Oxygen Delivery 05/08/24 04:52 05/08/24 08:54 Temperature 97.7 F Pulse Rate 65 Respiratory Rate 16 16 Blood Pressure 134/49 L Pulse Oximetry 100 100 Oxygen Delivery Room Air Intake/Output Intake/Output: Intake & Output 05/05/24 05/06/24 05/07/24 05/08/24 23:59 23:59 23:59 23:59 Intake Total 106 386 3668 0 Output Total 350 1000 1825 300 [facility] -140 -590 -661 -300 Meds/Results Medications: Active Medications Generic Name Dose Route Start Last Admin Trade Name Freq PRN Reason Stop Dose Admin Hydrocodone Bitart/Acetaminophen 1 tab 05/05/24 15:03 05/08/24 05:27 Hydrocodone/Acetaminophen (*Crx) 5-325 Mg Tablet PO 1 tab Q6H PRN Administration Pain Rated 4-6 Amlodipine Besylate 10 mg 05/03/24 01:40 05/08/24 08:50 Amlodipine Besylate 10 Mg Tablet PO 06/02/24 08:59 10 mg DAILY HIREN Administration Aspirin 81 mg 05/03/24 09:00 05/08/24 08:45 Aspirin 81 Mg Enteric Tablet PO Not Given DAILY HIREN Bisacodyl 10 mg 05/04/24 10:43 05/04/24 17:41 Bisacodyl 10 Mg Suppository RECTAL 10 mg QAM PRN Administration Constipation Clopidogrel Bisulfate 75 mg 05/03/24 09:00 05/08/24 08:45 Clopidogrel Bisulfate 75 Mg Tablet PO Not Given DAILY HIREN Docusate Sodium 100 mg 05/04/24 09:00 05/08/24 08:45 Docusate Sodium 100 Mg Capsule PO Not Given Q12HR HIREN Gabapentin 400 mg 05/03/24 09:00 05/08/24 08:45 Gabapentin 400 Mg Capsule PO Not Given TID HIREN Hydralazine HCl 10 mg 05/05/24 09:00 05/08/24 08:51 Hydralazine 10 Mg Tablet PO 10 mg T
--- NOTE | 2024-05-08 11:01 | P.PNNP_ITS ---
Progress Note: A&P Assessment and Plan (1) ERIC (acute kidney injury): Code(s): N17.9 - Acute kidney failure, unspecified Status: Acute Assessment and Plan: * normal baseline creatinine in June 2023 * no previous labs in the interim expect in April 2024: * 04/20/24 - creatinine 3.7mg/dl * 04/23/24 - creatinine 3.0mg/dl * 05/02/24 - creatinine 2.7mg/dl * multifactorial etiology: * obstructive uropathy/bilateral hydronephrosis * diuretic therapy (HCTZ + spironolactone) * GLO-I use * prerenal factors (?) * other (?) * evaluation to date noted: * imaging studies noted * urine eosinophils negative * urine electrolytes non-prerenal * CPK mildly elevated (but not enough to affect kidney function) * nephrotic range proteinuria noted * agree with holding GLO-I and diuretics for now * follow trend of repeat labs and UOP (2) Bilateral hydronephrosis: Code(s): N13.30 - Unspecified hydronephrosis Status: Acute Assessment and Plan: * admission imaging noted -- outpatient imaging on 04/23 noted this issue as well. * byrnes catheter in place * s/p cystoscopy with left ureteral stent placement * unable to place right ureteral stent (unable to identify right ureteral orifice) * noted plans for possible right nephrostomy tube placement today * Urology following (3) Hypertension: Code(s): I10 - Essential (primary) hypertension Status: Chronic Assessment and Plan: * diuretics and GLO-I on hold due to #1 * on oral hydralazine and home medication of amlodipine * follow trend of hemodynamics (4) Anemia: Code(s): D64.9 - Anemia, unspecified Status: Acute Assessment and Plan: * due to ERIC and possible acute illness * follow trend of H/H * check iron studies * consider HEATHER while hospitalized Will continue to follow. Subjective Date/time seen: 05/08/24 11:01 Interval history: Follow-up for acute kidney injury/acute renal failure. No acute complaints voiced at the time of my visit; renal function/creatinine is relatively stable (no real improvement but no significant worsening); tentatively on schedule today for right nephrostomy tube placement; no apparent distress noted; no issues/events overnight or earlier this morning. Exam Narrative: General: elderly but WD/WN female in NAD Heart: normal S1 and S2; no rub Lungs: clear to auscultation Abdomen: soft, nontender, nondistended, positive bowel sounds Extremities: no cyanosis or clubbing; no edema Skin: warm and dry Objective Data Vital Signs Vital Signs: Vital Signs Temp Pulse Resp BP Pulse Ox O2 Del Method 05/08/24 11:00 63 05/08/24 08:54 16 100 Room Air 05/08/24 08:04 60 05/08/24 04:52 97.7 F 65 16 134/49 L 100 05/08/24 04:00 65 05/08/24 00:00 59 L 05/07/24 20:00 64 05/07/24 16:00 74 05/07/24 20:04 97.6 F 54 L 17 130/83 99 05/07/24 14:00 97.6 F 73 16 166/53 H 100 Intake/Output Intake/Output: Intake & Output 05/05/24 05/06/24 05/07/24 05/08/24 23:59 23:59 23:59 23:59 Intake Total 079 536 6678 0 Output Total 350 1000 1825 300 Balance -140 -590 -661 -300
--- NOTE | 2024-05-08 11:01 | PM.PNNEP ---
Progress Note: A&P Assessment and Plan (1) ERIC (acute kidney injury): Code(s): N17.9 - Acute kidney failure, unspecified Status: Acute Assessment and Plan: normal baseline creatinine in June 2023 no previous labs in the interim expect in April 2024: 04/20/24 - creatinine 3.7mg/dl 04/23/24 - creatinine 3.0mg/dl 05/02/24 - creatinine 2.7mg/dl multifactorial etiology: obstructive uropathy/bilateral hydronephrosis diuretic therapy (HCTZ + spironolactone) GLO-I use prerenal factors (?) other (?) evaluation to date noted: imaging studies noted urine eosinophils negative urine electrolytes non-prerenal CPK mildly elevated (but not enough to affect kidney function) nephrotic range proteinuria noted agree with holding GLO-I and diuretics for now follow trend of repeat labs and UOP (2) Bilateral hydronephrosis: Code(s): N13.30 - Unspecified hydronephrosis Status: Acute Assessment and Plan: admission imaging noted -- outpatient imaging on 04/23 noted this issue as well. byrnes catheter in place s/p cystoscopy with left ureteral stent placement unable to place right ureteral stent (unable to identify right ureteral orifice) noted plans for possible right nephrostomy tube placement today Urology following (3) Hypertension: Code(s): I10 - Essential (primary) hypertension Status: Chronic Assessment and Plan: diuretics and GLO-I on hold due to #1 on oral hydralazine and home medication of amlodipine follow trend of hemodynamics (4) Anemia: Code(s): D64.9 - Anemia, unspecified Status: Acute Assessment and Plan: due to ERIC and possible acute illness follow trend of H/H check iron studies consider HEATHER while hospitalized Will continue to follow. Subjective Date/time seen: 05/08/24 11:01 Interval history: Follow-up for acute kidney injury/acute renal failure. No acute complaints voiced at the time of my visit; renal function/creatinine is relatively stable (no real improvement but no significant worsening); tentatively on schedule today for right nephrostomy tube placement; no apparent distress noted; no issues/events overnight or earlier this morning. Exam Narrative: General: elderly but WD/WN female in NAD Heart: normal S1 and S2; no rub Lungs: clear to auscultation Abdomen: soft, nontender, nondistended, positive bowel sounds Extremities: no cyanosis or clubbing; no edema Skin: warm and dry Objective Data Vital Signs Vital Signs: Vital Signs Temp Pulse Resp BP Pulse Ox O2 Del Method 05/08/24 11:00 63 05/08/24 08:54 16 100 Room Air 05/08/24 08:04 60 05/08/24 04:52 97.7 F 65 16 134/49 L 100 05/08/24 04:00 65 05/08/24 00:00 59 L 05/07/24 20:00 64 05/07/24 16:00 74 05/07/24 20:04 97.6 F 54 L 17 130/83 99 05/07/24 14:00 97.6 F 73 16 166/53 H 100 Intake/Output Intake/Output: Intake & Output 05/05/24 05/06/24 05/07/24 05/08/24 23:59 23:59 23:59 23:59 Intake Total 170 067 1933 0 Output Total 350 1000 1825 300 Balance -140 -590 -661 -300 Meds/Results Medications: Active Medications Generic Name Dose Route Start Last Admin Trade Name Freq PRN Reason Stop Dose Admin Hydrocodone Bitart/Acetaminophen 1 tab 05/05/24 15:03 05/08/24 05:27 Hydrocodone/Acetaminophen (*Crx) 5-325 Mg Tablet PO 1 tab Q6H PRN Administration Pain Rated 4-6 Amlodipine Besylate 10 mg 05/03/24 01:40 05/08/24 08:50 Amlodipine Besylate 10 Mg Tablet PO 06/02/24 08:59 10 mg DAILY HIREN Administration Aspirin 81 mg 05/03/24 09:00 05/08/24 08:45 Aspirin 81 Mg Enteric Tablet PO Not Given DAILY HIREN Bisacodyl 10 mg 05/04/24 10:43 05/04/24 17:41 Bisacodyl 10 Mg Suppository RECTAL 10 mg QAM PRN Administration Constipation Clopidogrel Bisulfate 75 mg 05/03/24 0
--- NOTE | 2024-05-08 12:15 | PC.NURSE ---
To cat scan via stretcher.
--- NOTE | 2024-05-08 12:35 | PCNFU ---
Nutrition Follow-Up Complete: Inadequate Energy Intake as related to ERIC as evideced by poor po intake and weight loss reported. Goal: Meet estimated nutritional needs.- Progressing with goal. Intakes 20-85% Pt current nutrition is NPO for nephrostomy tube placement. Previous diet Regular with Ensure Compact BID for additional 220 kcal and 9 g protein each. Nutrition recommendation: Advance diet per MD after procedure. Regular diet, Ensure Compact BID Last recorded weight is 44.3 kg. 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 Intakes fair to poor on previous. Continue with current nutrition care plan and orders. Agree with orders. Will monitor weight, labs, skin, oral intake, meds every 3 days.
--- NOTE | 2024-05-08 13:35 | PC.NURSE ---
Returned from cat scan via stretcher.
--- NOTE | 2024-05-08 15:02 | PM.IMPN ---
Progress Note: A&P Assessment and Plan (1) Bilateral hydronephrosis: Code(s): N13.30 - Unspecified hydronephrosis Status: Acute Assessment and Plan: Bilateral hydronephrosis with high-grade obstruction evident on Lasix renal scan and persistently elevated creatinine S/p left ureteral stent placement on 05/05/2024. Right ureteral stent unable to be placed as right ureteral orifice not visible. Repeat CT of the abdomen/pelvis showed right hydronephrosis with dilated right ureter 05/08 CT guided right percutaneous nephrostomy tube placement today per IR. Continue NPO diet Will need to follow-up with her established urologist in [place] for definitive management (2) ERIC (acute kidney injury): Code(s): N17.9 - Acute kidney failure, unspecified Status: Acute Assessment and Plan: Creatinine elevated this admission ranging from 2.7-3.3 Will monitor renal function closely following right nephrostomy tube placement Nephrology following Plan amlodipine restarted to help control bP better Time Spent With Patient Time with patient: Greater than 35 minutes Subjective Date/time seen: 05/08/24 0800 Interval history: CT guided right percutaneous nephrostomy tube placement today per IR. NPO diet. was seen per nephrology. She will need to follow-up with her urologist in [place] for definitive management Review of Systems Review of Systems: All systems reviewed & are unremarkable except as noted in HPI and below ROS unobtainable: Yes other ( patient is a poor historian unable to contribute in a meaningful way ) Exam Narrative: General: Awake, alert, comfortable, no acute distress HEENT: Normocephalic, atraumatic, sclerae anicteric Respiratory: Normal respiratory effort, no accessory muscle use Abdomen: Nondistended, soft, nontender Skin: Normal coloration, warm and dry Neurologic: No focal neuro deficits noted Psychiatric: Appropriate mood and affect, judgment and insight intact Const: General: comfortable, no acute distress, well developed, alert, awake, ill appearing chronically, average body habitus and underweight Nutritional Appearance: average body habitus and underweight Orientation/consciousness: patient oriented x3 Other: patient looks older than stated age HENMT: Head: normal to inspection, normocephalic and atraumatic Ears: hearing grossly normal bilaterally Face/Nose/Sinus: normal facial exam Face and sinus: normal facial exam Eyes: General: appearance normal, both eyes and all related structures Pupils: Equal, round and reactive pupils present EOM: EOMs intact bilaterally Neck: Neck: full ROM, no lymphadenopathy and no JVD Thyroid: thyroid normal Lymphatic: no lymphadenopathy noted Resp: Effort & Inspection: normal respiratory effort and able to speak in complete sentences Auscultation: clear to auscultation bilaterally Cardio: Jugular venous distension: no JVD Rate: regular rate Rhythm: regular rhythm Heart sounds: S1 normal heart sound present and S2 normal heart sound present : General: Yes deferred Skin: Rashes: no rashes Wounds: no wounds Neuro: General: patient oriented x3, CN's II-XI intact bilaterally and Unable to assess gait Cranial nerves: Yes CN's II-XII intact bilaterally and Yes Equal, round and reactive pupils present Cognition (Neuro): normal cognition Speech: normal speech Gait exam (Neuro): Unable to assess gait Motor exam (neuro): 5/5 motor strength present throughout Extrem: General: normal to inspection, full ROM, no joint enlargement and no pedal edema Other: 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
[2024-05-08] MEDS: HYDROmorphone HCL INJ (*CRX) 1 MG/ML SYR 0.5 MG IV PUSH ×2 (15:53→20:40)
[2024-05-08] MEDS: GABAPENTIN 400 MG CAPSULE PO (17:39)
[2024-05-08] MEDS: DOCUSATE SODIUM 100 MG CAPSULE PO (20:39)
[2024-05-08] MEDS: ROSUVASTATIN 20 MG TABLET 40 MG PO (20:39)
[2024-05-09] VITALS (11 sets, daily range): BP systolic 146–174; BP diastolic 46–54; PULSE 58–79; RESP 17–18; TEMP 36.3–36.9; O2SAT 100
[2024-05-09] MEDS: HYDROmorphone HCL INJ (*CRX) 1 MG/ML SYR 0.5 MG IV PUSH ×4 (01:22→19:29)
[2024-05-09 06:28] LABS: Basophils Absolute Auto 0.1 K/mm3 (0.0-0.1); Eosinophils Absolute Auto 0.5 K/mm3 (0-0.3); Eosinophils Percent Auto 6.2 % (0-4.4); Hematocrit 25.6 % (37.0-47.0); Hemoglobin 8.1 g/dL (12.0-15.0); Immature Granulocyte Absolute 0.02 K/mm3 (0.00-0.031); Immature Granulocyte Percent A 0.2 % (0-0.5); Lymphocytes Absolute Auto 1.83 K/mm3 (0.9-3.2); Lymphocytes Percent Auto 20.8 % (18.3-44.2); Mean Corpuscular HGB Conc 31.6 g/dl (32-36); Mean Corpuscular Hemoglobin 32.1 pg (26-34); Mean Corpuscular Volume 101.6 fl (80-100); Mean Platelet Volume 10.4 fl (7.4-10.4); Monocytes Absolute Auto 0.5 K/mm3 (0.1-0.6); Monocytes Percent Auto 5.7 % (2.6-8.5); Neutrophils Absolute Auto 5.8 K/mm3 (1.3-6.7); Neutrophils Percent Auto 66.1 % (45.5-73.1); Platelet Count Result 244 k/mm3 (150-375); Red Blood Count 2.52 M/mm3 (4.2-5.4); Red Cell Distribution Width 13.7 % (11.5-14.5); White Blood Count 8.8 K/mm3 (4.5-10.0)
[2024-05-09 06:44] LABS: Albumin Level 3.3 g/dL (3.5-5.1); Alkaline Phosphatase 75 U/L (38-126); Anion Gap 8 mmol/L (4-12); Aspartate Amino Transferase 22 U/L (14-36); Bilirubin,Total 0.2 mg/dL (0.2-1.3); Blood Urea Nitrogen 48 mg/dL (7-17); Calcium 8.1 mg/dL (8.4-10.2); Carbon Dioxide 21 mmol/L (22-30); Chloride 107 mmol/L (98-107); Estimated CRCL calculation 10 ml/min; Estimated Glomerular Filt Rate 13; Glucose 83 mg/dL (65-110); Magnesium 2.3 mg/dL (1.6-2.3); Phosphorus 5.6 mg/dL (2.5-4.5); Potassium 3.6 mmol/L (3.4-5.0); Sodium 136 mmol/L (137-145)
[2024-05-09 06:59] LABS: Alanine Aminotransferase < 6 U/L (6-35)
[2024-05-09 07:02] LABS: Iron 24 ug/dL (37-170)
[2024-05-09 07:11] LABS: Percent Iron Saturation 11 % (20-50)
[2024-05-09 07:44] LABS: Folic Acid 8.8 ng/mL (2.76->20)
[2024-05-09] MEDS: SERTRALINE HCL 25 MG TABLET PO (08:36)
[2024-05-09] MEDS: HYDROcodone/acetaminophen (*CRX) 5-325 MG TABLET 1 TAB PO ×3 (08:36→23:27)
[2024-05-09] MEDS: amLODIPine BESYLATE 10 MG TABLET PO (08:36)
[2024-05-09] MEDS: GABAPENTIN 400 MG CAPSULE PO ×3 (08:36→17:21)
[2024-05-09] MEDS: hydrALAZINE 10 MG TABLET PO ×4 (08:36→20:08)
[2024-05-09] MEDS: ASPIRIN 81 MG ENTERIC TABLET PO (08:36)
[2024-05-09] MEDS: CLOPIDOGREL BISULFATE 75 MG TABLET PO (08:36)
[2024-05-09] MEDS: DOCUSATE SODIUM 100 MG CAPSULE PO ×2 (08:36→20:08)
[2024-05-09] MEDS: polyethylene glycoL 3350 17 GM POWD.PACK PO (08:36)
--- NOTE | 2024-05-09 08:47 | PM.IMPN ---
Progress Note: A&P Assessment and Plan (1) Bilateral hydronephrosis: Code(s): N13.30 - Unspecified hydronephrosis Status: Acute Assessment and Plan: Bilateral hydronephrosis with high-grade obstruction evident on Lasix renal scan and persistently elevated creatinine S/p left ureteral stent placement on 05/05/2024. Right ureteral stent unable to be placed as right ureteral orifice not visible. Repeat CT of the abdomen/pelvis showed right hydronephrosis with dilated right ureter 05/08 CT guided right percutaneous nephrostomy tube placement today per IR. Continue NPO diet Will need to follow-up with her established urologist in [place] for definitive management 05/09- following with urology. nephrostomy tube is draining without difficulties (2) ERIC (acute kidney injury): Code(s): N17.9 - Acute kidney failure, unspecified Status: Acute Assessment and Plan: Creatinine elevated this admission ranging from 2.7-3.3 Will monitor renal function closely following right nephrostomy tube placement Nephrology following 05/09- cr 3.6/bun 48 today nephrology following (3) Anemia: Code(s): D64.9 - Anemia, unspecified Status: Acute Assessment and Plan: -iron studies ordered per nephrology - low- will order iv venofer renally dosed Plan amlodipine restarted to help control bP better BP still elevated- will increase frequency of hydralazine to QID Time Spent With Patient Time with patient: Greater than 35 minutes Subjective Date/time seen: 05/09/24 08:47 Interval history: CT guided right percutaneous nephrostomy tube placement 05/08 per IR. was seen per nephrology. BP still elevated. IV pain meds were added yesterday for better pain control. She will need to follow-up with her urologist in [place] for definitive management Review of Systems Review of Systems: All systems reviewed & are unremarkable except as noted in HPI and below ROS unobtainable: Yes other ( patient is a poor historian unable to contribute in a meaningful way ) Exam Narrative: General: Awake, alert, comfortable, no acute distress HEENT: Normocephalic, atraumatic, sclerae anicteric Respiratory: Normal respiratory effort, no accessory muscle use Abdomen: Nondistended, soft, nontender Skin: Normal coloration, warm and dry Neurologic: No focal neuro deficits noted Psychiatric: Appropriate mood and affect, judgment and insight intact Const: General: comfortable, no acute distress, well developed, alert, awake, ill appearing chronically, average body habitus and underweight Nutritional Appearance: average body habitus and underweight Orientation/consciousness: patient oriented x3 Other: patient looks older than stated age HENMT: Head: normal to inspection, normocephalic and atraumatic Ears: hearing grossly normal bilaterally Face/Nose/Sinus: normal facial exam Face and sinus: normal facial exam Eyes: General: appearance normal, both eyes and all related structures Pupils: Equal, round and reactive pupils present EOM: EOMs intact bilaterally Neck: Neck: full ROM, no lymphadenopathy and no JVD Thyroid: thyroid normal Lymphatic: no lymphadenopathy noted Resp: Effort & Inspection: normal respiratory effort and able to speak in complete sentences Auscultation: clear to auscultation bilaterally Cardio: Jugular venous distension: no JVD Rate: regular rate Rhythm: regular rhythm Heart sounds: S1 normal heart sound present and S2 normal heart sound present : General: Yes deferred Skin: Rashes: no rashes Wounds: no wounds Neuro: General: patient oriented x3, CN's II-XI intact bilaterally and Unable to assess gait Cranial nerves: Yes CN's II-XII intact bilaterally and Yes Equal, round and reactive pupils present Cognition (Neuro): normal cognition Speech: normal speech Gait exam (Neuro): Unable to assess gait Motor exam (neuro): 5/5 motor strength present thr
--- NOTE | 2024-05-09 09:17 | WPDUROPN2 ---
Progress Note: A&P Assessment and Plan (1) Bilateral hydronephrosis: Code(s): N13.30 - Unspecified hydronephrosis Status: Acute Assessment and Plan: Bilateral hydronephrosis with high-grade obstruction evident on Lasix renal scan and persistently elevated creatinine S/p left ureteral stent placement on 05/05/2024. Right ureteral stent unable to be placed as right ureteral orifice not visible. Repeat CT of the abdomen/pelvis showed right hydronephrosis with dilated right ureter S/p right percutaneous nephrostomy tube placement by IR on 05/08/2024 Will replace byrnes catheter, became dislodged yesterday Will need to follow-up with her established urologist in [place] for definitive management (2) ERIC (acute kidney injury): Code(s): N17.9 - Acute kidney failure, unspecified Status: Acute Assessment and Plan: Creatinine elevated this admission ranging from 2.7-3.6 Unfortunately no improvement following nephrostomy tube placement. Will continue to monitor after byrnes catheter replacement Nephrology consultation Subjective Subjective Date/Time Seen: 05/09/24 09:17 Interval history: Feeling fair today. Complains of some right back pain at site of nephrostomy tube insertion. Nephrostomy tube is draining reddish brown output. She reports that she is voiding well in her urine is clear. She denies nausea, vomiting, fever, or chills. Review of Systems Review of Systems: All systems reviewed & are unremarkable except as noted in HPI and below Exam Narrative: General: Awake, alert, comfortable, no acute distress HEENT: Normocephalic, atraumatic, sclerae anicteric Respiratory: Normal respiratory effort, no accessory muscle use Abdomen: Nondistended, soft, nontender : Right nephrostomy tube with reddish brown output Skin: Normal coloration, warm and dry Neurologic: No focal neuro deficits noted Psychiatric: Appropriate mood and affect, judgment and insight intact Objective Data Vital Signs Vital Signs: Vital Signs - 24 hr 05/08/24 12:01 05/08/24 13:32 05/08/24 13:45 Temperature Pulse Rate 63 65 Respiratory Rate 16 16 Blood Pressure 134/49 L Pulse Oximetry 100 100 Oxygen Delivery Room Air 05/08/24 14:00 05/08/24 16:02 05/08/24 16:03 Temperature 98.1 F 98.2 F Pulse Rate 65 60 62 Respiratory Rate 18 18 Blood Pressure 156/47 H 139/48 L Pulse Oximetry 100 100 Oxygen Delivery 05/08/24 20:16 05/08/24 20:40 05/08/24 20:00 Temperature 98.0 F Pulse Rate 62 66 Respiratory Rate 17 Blood Pressure 155/56 H Pulse Oximetry 100 Oxygen Delivery Room Air 05/09/24 00:04 05/09/24 04:00 05/09/24 04:37 Temperature 97.4 F L Pulse Rate 66 63 67 Respiratory Rate 17 Blood Pressure 146/46 H Pulse Oximetry 100 Oxygen Delivery 05/09/24 08:40 Temperature Pulse Rate 60 Respiratory Rate Blood Pressure 162/54 H Pulse Oximetry Oxygen Delivery Intake/Output Intake/Output: Intake & Output 05/06/24 05/07/24 05/08/24 05/09/24 23:59 23:59 23:59 23:59 Intake Total 410 1164 240 100 Output Total 1000 1825 1515 210 Balance -590 -661 -1275 -110 Meds/Results Medications: Active Medications Generic Name Dose Route Start Last Admin Trade Name Freq PRN Reason Stop Dose Admin Hydrocodone Bitart/Acetaminophen 1 tab 05/05/24 15:03 05/09/24 08:36 Hydrocodone/Acetaminophen (*Crx) 5-325 Mg Tablet PO 1 tab Q6H PRN Administration Pain Rated 4-6 Amlodipine Besylate 10 mg 05/03/24 01:40 05/09/24 08:36 Amlodipine Besylate 10 Mg Tablet PO 06/02/24 08:59 10 mg DAILY HIREN Administration Aspirin 81 mg 05/03/24 09:00 05/09/24 08:36 Aspirin 81 Mg Enteric Tablet PO 81 mg DAILY HIREN Administration Bisacodyl 10 mg 05/04/24 10:43 05/04/24 17:41 Bisacodyl 10 Mg Suppository RECTAL 10 mg QAM PRN Administration Constipation Clopidogrel Bisulfate 75 mg 05/03/24 09:00 1
--- NOTE | 2024-05-09 10:22 | P.PNNP_ITS ---
Progress Note: A&P Assessment and Plan (1) ERIC (acute kidney injury): Code(s): N17.9 - Acute kidney failure, unspecified Status: Acute Assessment and Plan: * normal baseline creatinine in June 2023 * no previous labs in the interim except in April 2024: * 04/20/24 - creatinine 3.7mg/dl * 04/23/24 - creatinine 3.0mg/dl * 05/02/24 - creatinine 2.7mg/dl * multifactorial etiology: * obstructive uropathy/bilateral hydronephrosis * diuretic therapy (HCTZ + spironolactone) * GLO-I use * prerenal factors (?) * other (?) * evaluation to date noted: * imaging studies noted * urine eosinophils negative * urine electrolytes non-prerenal * CPK mildly elevated (but not enough to affect kidney function) * nephrotic range proteinuria noted * agree with holding GLO-I and diuretics for now * follow trend of repeat labs and UOP (2) Bilateral hydronephrosis: Code(s): N13.30 - Unspecified hydronephrosis Status: Acute Assessment and Plan: * admission imaging noted -- outpatient imaging on 04/23 noted this issue as well. * byrnes catheter in place * s/p cystoscopy with left ureteral stent placement * unable to place right ureteral stent (unable to identify right ureteral orifice) * s/p right nephrostomy tube placement yesterday (05/08/24) * Urology following (3) Hypertension: Code(s): I10 - Essential (primary) hypertension Status: Chronic Assessment and Plan: * diuretics and GLO-I on hold due to #1 * on oral hydralazine and home medication of amlodipine * follow trend of hemodynamics (4) Anemia: Code(s): D64.9 - Anemia, unspecified Status: Acute Assessment and Plan: * due to ERIC and possible acute illness * follow trend of H/H * anemia studies with iron deficiency noted * IV iron while hospitalized * oral iron on discharge * consider HEATHER while hospitalized Will continue to follow. Subjective Date/time seen: 05/09/24 10:22 Interval history: Follow-up for acute kidney injury/acute renal failure. Status post right nephrostomy tube placement by Interventional Radiology yesterday -- tolerated this procedure reasonably well; reports some discomfort at insertion site of nephrostomy tube but otherwise appears to be doing reasonably well; no real improvement noted with renal function/creatinine at this time. Exam Narrative: General: elderly but WD/WN female in NAD Heart: normal S1 and S2; no rub Lungs: clear to auscultation Abdomen: soft, nontender, nondistended, positive bowel sounds Extremities: no cyanosis or clubbing; no edema Skin: warm and intact Objective Data Vital Signs Vital Signs: Vital Signs Temp Pulse Resp BP Pulse Ox O2 Del Method 05/09/24 10:15 64 157/51 H 05/09/24 08:00 Room Air 05/09/24 08:40 60 162/54 H 05/09/24 04:37 97.4 F L 67 17 146/46 H 100 05/09/24 04:00 63 05/09/24 00:04 66 05/08/24 20:00 66 05/08/24 20:40 Room Air 05/08/24 20:16 98.0 F 62 17 155/56 H 100 05/08/24 16:03 62 05/08/24 16:02 98.2 F 60 18 139/48 L 100 05/08/24 14:00 98.1 F 65 18 156/47 H 100 05/08/24 13:45 16 100 Room Air 05/08/24 13:32 65 16 134/49 L 100
--- NOTE | 2024-05-09 10:22 | PM.PNNEP ---
Progress Note: A&P Assessment and Plan (1) ERIC (acute kidney injury): Code(s): N17.9 - Acute kidney failure, unspecified Status: Acute Assessment and Plan: normal baseline creatinine in June 2023 no previous labs in the interim except in April 2024: 04/20/24 - creatinine 3.7mg/dl 04/23/24 - creatinine 3.0mg/dl 05/02/24 - creatinine 2.7mg/dl multifactorial etiology: obstructive uropathy/bilateral hydronephrosis diuretic therapy (HCTZ + spironolactone) GLO-I use prerenal factors (?) other (?) evaluation to date noted: imaging studies noted urine eosinophils negative urine electrolytes non-prerenal CPK mildly elevated (but not enough to affect kidney function) nephrotic range proteinuria noted agree with holding GLO-I and diuretics for now follow trend of repeat labs and UOP (2) Bilateral hydronephrosis: Code(s): N13.30 - Unspecified hydronephrosis Status: Acute Assessment and Plan: admission imaging noted -- outpatient imaging on 04/23 noted this issue as well. byrnes catheter in place s/p cystoscopy with left ureteral stent placement unable to place right ureteral stent (unable to identify right ureteral orifice) s/p right nephrostomy tube placement yesterday (05/08/24) Urology following (3) Hypertension: Code(s): I10 - Essential (primary) hypertension Status: Chronic Assessment and Plan: diuretics and GLO-I on hold due to #1 on oral hydralazine and home medication of amlodipine follow trend of hemodynamics (4) Anemia: Code(s): D64.9 - Anemia, unspecified Status: Acute Assessment and Plan: due to ERIC and possible acute illness follow trend of H/H anemia studies with iron deficiency noted IV iron while hospitalized oral iron on discharge consider HEATHER while hospitalized Will continue to follow. Subjective Date/time seen: 05/09/24 10:22 Interval history: Follow-up for acute kidney injury/acute renal failure. Status post right nephrostomy tube placement by Interventional Radiology yesterday -- tolerated this procedure reasonably well; reports some discomfort at insertion site of nephrostomy tube but otherwise appears to be doing reasonably well; no real improvement noted with renal function/creatinine at this time. Exam Narrative: General: elderly but WD/WN female in NAD Heart: normal S1 and S2; no rub Lungs: clear to auscultation Abdomen: soft, nontender, nondistended, positive bowel sounds Extremities: no cyanosis or clubbing; no edema Skin: warm and intact Objective Data Vital Signs Vital Signs: Vital Signs Temp Pulse Resp BP Pulse Ox O2 Del Method 05/09/24 10:15 64 157/51 H 05/09/24 08:00 Room Air 05/09/24 08:40 60 162/54 H 05/09/24 04:37 97.4 F L 67 17 146/46 H 100 05/09/24 04:00 63 05/09/24 00:04 66 05/08/24 20:00 66 05/08/24 20:40 Room Air 05/08/24 20:16 98.0 F 62 17 155/56 H 100 05/08/24 16:03 62 05/08/24 16:02 98.2 F 60 18 139/48 L 100 05/08/24 14:00 98.1 F 65 18 156/47 H 100 05/08/24 13:45 16 100 Room Air 05/08/24 13:32 65 16 134/49 L 100 Intake/Output Intake/Output: Intake & Output 05/06/24 05/07/24 05/08/24 05/09/24 23:59 23:59 23:59 23:59 Intake Total 410 1164 240 100 Output Total 1000 1825 1515 210 Balance -590 -661 -1275 -110 Meds/Results Medications: Active Medications Generic Name Dose Route Start Last Admin Trade Name Freq PRN Reason Stop Dose Admin Hydrocodone Bitart/Acetaminophen 1 tab 05/05/24 15:03 05/09/24 08:36 Hydrocodone/Acetaminophen (*Crx) 5-325 Mg Tablet PO 1 tab Q6H PRN Administration Pain Rated 4-6 Amlodipine Besylate 10 mg 05/03/24 01:40 05/09/24 08:36 Amlodipine Besylate 10 Mg Tablet PO 06/02/24 08:59 10 mg DAILY HIREN Administration Aspirin 81 mg 05/03/24 0
--- NOTE | 2024-05-09 14:26 | PC.NURSE ---
On 05/09/24, the student, [Libia Bhatia], provided care and completed [employer] documentation on this patient. I have reviewed the student's documentation and agree with the findings.
[2024-05-09] MEDS: IRON SUCROSE COMPLEX 200 MG in SODIUM CHLORIDE 0.9% IV 100 ML 220 MG IVPB (15:34)
[2024-05-09] MEDS: ROSUVASTATIN 20 MG TABLET 40 MG PO (20:08)
[2024-05-10] VITALS (7 sets, daily range): BP systolic 129–184; BP diastolic 52–76; PULSE 65–73; RESP 16–18; TEMP 36.4–36.7; O2SAT 99–100
--- NOTE | 2024-05-10 04:27 | PC.NURSE ---
telemetry went down after generator test at 0300. Maintenance notified.
[2024-05-10 05:51] LABS: Basophils Absolute Auto 0.1 K/mm3 (0.0-0.1); Basophils Percent Auto 0.8 % (0.2-1.2); Eosinophils Absolute Auto 0.6 K/mm3 (0-0.3); Eosinophils Percent Auto 7.5 % (0-4.4); Hematocrit 23.4 % (37.0-47.0); Hemoglobin 7.7 g/dL (12.0-15.0); Immature Granulocyte Absolute 0.04 K/mm3 (0.00-0.031); Immature Granulocyte Percent A 0.5 % (0-0.5); Lymphocytes Absolute Auto 1.38 K/mm3 (0.9-3.2); Lymphocytes Percent Auto 17.8 % (18.3-44.2); Mean Corpuscular HGB Conc 32.9 g/dl (32-36); Mean Corpuscular Volume 100.4 fl (80-100); Mean Platelet Volume 10.4 fl (7.4-10.4); Monocytes Absolute Auto 0.6 K/mm3 (0.1-0.6); Monocytes Percent Auto 7.3 % (2.6-8.5); Neutrophils Absolute Auto 5.1 K/mm3 (1.3-6.7); Neutrophils Percent Auto 66.1 % (45.5-73.1); Platelet Count Result 242 k/mm3 (150-375); Red Blood Count 2.33 M/mm3 (4.2-5.4); Red Cell Distribution Width 13.4 % (11.5-14.5); White Blood Count 7.8 K/mm3 (4.5-10.0)
[2024-05-10 06:02] LABS: Albumin Level 2.9 g/dL (3.5-5.1); Alkaline Phosphatase 77 U/L (38-126); Anion Gap 7 mmol/L (4-12); Aspartate Amino Transferase 20 U/L (14-36); Bilirubin,Total 0.1 mg/dL (0.2-1.3); Blood Urea Nitrogen 47 mg/dL (7-17); Calcium 8.2 mg/dL (8.4-10.2); Carbon Dioxide 21 mmol/L (22-30); Chloride 109 mmol/L (98-107); Estimated CRCL calculation 9 ml/min; Estimated Glomerular Filt Rate 12; Glucose 88 mg/dL (65-110); Magnesium 2.3 mg/dL (1.6-2.3); Phosphorus 5.9 mg/dL (2.5-4.5); Potassium 3.7 mmol/L (3.4-5.0); Sodium 137 mmol/L (137-145)
[2024-05-10 06:31] LABS: Alanine Aminotransferase < 6 U/L (6-35)
--- NOTE | 2024-05-10 08:26 | PM.IMPN ---
Progress Note: A&P Assessment and Plan (1) Bilateral hydronephrosis: Code(s): N13.30 - Unspecified hydronephrosis Status: Acute Assessment and Plan: Bilateral hydronephrosis with high-grade obstruction evident on Lasix renal scan and persistently elevated creatinine - Urology consulted - S/p left ureteral stent placement on 05/05/[address] López. Right ureteral stent unable to be placed as right ureteral orifice not visible. - Repeat CT of the abdomen/pelvis showed right hydronephrosis with dilated right ureter - S/p right percutaneous nephrostomy tube placement by IR on 05/08/2024 - Will need to follow-up with her established urologist in [place] for definitive management Spoke with Dr. López in regards to patient and he states that the stent, nephrostomy tube and byrnes will stay in at time of discharge. He notes that patient should follow up with her urologist and oncologist outpatient. The tubes will eventually need to be removed whether it be by him or her current urologist. (2) ERIC (acute kidney injury): Code(s): N17.9 - Acute kidney failure, unspecified Status: Acute Assessment and Plan: BUN/Cr 41/2.7 on admission. Per nephrology patient was WNL in Jun 2023, however on 04/20 and 04/23/2024 patient Cr 3.7 and 3.0 respectively. Etiology obstructive uropathy/bilateral hydronephrosis diuretic therapy (HCTZ + spironolactone) GLO-I use prerenal factors (?) BUN/Cr continues to rise, now 47/3.8 on am labs Byrnes catheter in place, Urine output remains stable. Continue to closely monitor I/O and volume status. Avoid nephrotoxic medications AceI and diuretics on hold 05/10: Spoke with Dr. Stinson who states this has likely been an ongoing issue given her chemo/radiation history and the lack of follow up lab work. He states that the BUN/Cr can continue to be followed in the outpatient setting and that the patient will require a sales promotion officer. Patients I/O remain normal, she does not appear volume overloaded and electrolytes are normal. (3) Hypertension: Code(s): I10 - Essential (primary) hypertension Status: Chronic Assessment and Plan: Chronic, diuretics and glo inhibitor on hold given ERIC. - Remains on home amlodipine 10 mg daily - Started on hydralazine 10 mg QID. Continues to have pressures into the 170s systolic, increased hydralazine to 12.5 QID. - Monitor (4) Anemia: Code(s): D64.9 - Anemia, unspecified Status: Acute Assessment and Plan: Likely anemia secondary to ERIC. 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 Patient is pleasant lying in bed with brother and TARSHA at bedside. She has no complaints at this time, denying chest pain, shortness of breath, palpitations, nausea/vomiting, and abdominal pain. She continues to have good urine output in the byrnes. She endorses slight right back pain around the perc tube. Discussed patient with urology Dr. López who states patient would be fine for discharge today with the stent, perc tube and byrnes in place with close follow up by her urologist. Patient will require the tubes removed at some point, either following up with dr. lópez or her own urologist. Also discussed patient with dr. stinson who states that the BUN/Cr is likely chronic and has been ongoing over several months. Given that the patient remains euvolemic with good I/O and no electrolyte abnormalities this could
[2024-05-10] MEDS: FERROUS SULFATE 325 MG TABLET DR PO ×2 (09:29→17:22)
[2024-05-10] MEDS: DOCUSATE SODIUM 100 MG CAPSULE PO ×2 (09:30→20:10)
[2024-05-10] MEDS: SERTRALINE HCL 25 MG TABLET PO (09:30)
[2024-05-10] MEDS: hydrALAZINE 10 MG TABLET PO ×2 (09:30→12:37)
[2024-05-10] MEDS: HYDROcodone/acetaminophen (*CRX) 5-325 MG TABLET 1 TAB PO ×2 (09:30→17:22)
[2024-05-10] MEDS: ASPIRIN 81 MG ENTERIC TABLET PO (09:30)
[2024-05-10] MEDS: GABAPENTIN 400 MG CAPSULE PO ×3 (09:30→17:22)
[2024-05-10] MEDS: amLODIPine BESYLATE 10 MG TABLET PO (09:30)
[2024-05-10] MEDS: polyethylene glycoL 3350 17 GM POWD.PACK PO (09:30)
[2024-05-10] MEDS: CLOPIDOGREL BISULFATE 75 MG TABLET PO (09:30)
[2024-05-10] MEDS: oxyBUTYnin CHLORIDE 5 MG TABLET PO (09:33)
--- NOTE | 2024-05-10 13:35 | P.PNNP_ITS ---
Progress Note: A&P Assessment and Plan (1) ERIC (acute kidney injury): Code(s): N17.9 - Acute kidney failure, unspecified Status: Acute Assessment and Plan: * normal baseline creatinine in June 2023 * no previous labs in the interim except in April 2024: * 04/20/24 - creatinine 3.7mg/dl * 04/23/24 - creatinine 3.0mg/dl * 05/02/24 - creatinine 2.7mg/dl * multifactorial etiology: * obstructive uropathy/bilateral hydronephrosis * diuretic therapy (HCTZ + spironolactone) * significant vascular disease (? history of renal artery stent) * GLO-I use * prerenal factors (?) * other (?) * evaluation to date noted: * imaging studies noted * urine eosinophils negative * urine electrolytes non-prerenal * CPK mildly elevated (but not enough to affect kidney function) * nephrotic range proteinuria noted * agree with holding GLO-I and diuretics for now * given the lack of improvement in renal function despite all interventions today, I am starting to suspect that her renal function has been abnormal for a significant period of time before admission and her current creatinine may be her new baseline.... * follow trend of repeat labs and UOP (2) Bilateral hydronephrosis: Code(s): N13.30 - Unspecified hydronephrosis Status: Acute Assessment and Plan: * admission imaging noted -- outpatient imaging on 04/23 noted this issue as well. * acute? * acute on chronic? * chronic? * byrnes catheter in place * s/p cystoscopy with left ureteral stent placement (on 05/05/24) * unable to place right ureteral stent (unable to identify right ureteral orifice) * s/p right nephrostomy tube placement (on 05/08/24) * Urology following (3) Hypertension: Code(s): I10 - Essential (primary) hypertension Status: Chronic Assessment and Plan: * diuretics and GLO-I on hold due to #1 * on oral hydralazine and home medication of amlodipine * follow trend of hemodynamics (4) Anemia: Code(s): D64.9 - Anemia, unspecified Status: Acute Assessment and Plan: * due to ERIC and possible acute illness * follow trend of H/H * anemia studies with iron deficiency noted * IV iron while hospitalized * oral iron on discharge * dose with HEATHER while hospitalized * may need Hem/Onc following for HEATHER injections as an outpatient Will continue to follow. Subjective Date/time seen: 05/10/24 13:35 Interval history: Follow-up for acute kidney injury/acute renal failure. Still no significant improvement in renal function/creatinine although still making reasonable urine output and no critical electrolyte abnormalities; no apparent distress noted at the time of my visit; no other issues/events overnight or earlier this morning. Exam Narrative: General: elderly but WD/WN female in NAD Heart: normal S1 and S2; no rub Lungs: clear to auscultation Abdomen: soft, nontender, nondistended, positive bowel sounds Extremities: no cyanosis or clubbing; no edema Skin: no rash Objective Data Vital Signs Vital Signs: Vital Signs Temp Pulse Resp BP Pulse Ox O2 Del Method 05/10/24 13:00 98 F 67 16 157/57 H 100 05/10/24 08:00 Room Air 05/10/24 10:01 Room Air 05/10/24 08:50 Room Air 05/10/24 06:00 98.1 F 69 18 174/52 H 99
--- NOTE | 2024-05-10 13:35 | PM.PNNEP ---
Progress Note: A&P Assessment and Plan (1) ERIC (acute kidney injury): Code(s): N17.9 - Acute kidney failure, unspecified Status: Acute Assessment and Plan: normal baseline creatinine in June 2023 no previous labs in the interim except in April 2024: 04/20/24 - creatinine 3.7mg/dl 04/23/24 - creatinine 3.0mg/dl 05/02/24 - creatinine 2.7mg/dl multifactorial etiology: obstructive uropathy/bilateral hydronephrosis diuretic therapy (HCTZ + spironolactone) significant vascular disease (? history of renal artery stent) GLO-I use prerenal factors (?) other (?) evaluation to date noted: imaging studies noted urine eosinophils negative urine electrolytes non-prerenal CPK mildly elevated (but not enough to affect kidney function) nephrotic range proteinuria noted agree with holding GLO-I and diuretics for now given the lack of improvement in renal function despite all interventions today, I am starting to suspect that her renal function has been abnormal for a significant period of time before admission and her current creatinine may be her new baseline.... follow trend of repeat labs and UOP (2) Bilateral hydronephrosis: Code(s): N13.30 - Unspecified hydronephrosis Status: Acute Assessment and Plan: admission imaging noted -- outpatient imaging on 04/23 noted this issue as well. acute? acute on chronic? chronic? byrnes catheter in place s/p cystoscopy with left ureteral stent placement (on 05/05/24) unable to place right ureteral stent (unable to identify right ureteral orifice) s/p right nephrostomy tube placement (on 05/08/24) Urology following (3) Hypertension: Code(s): I10 - Essential (primary) hypertension Status: Chronic Assessment and Plan: diuretics and GLO-I on hold due to #1 on oral hydralazine and home medication of amlodipine follow trend of hemodynamics (4) Anemia: Code(s): D64.9 - Anemia, unspecified Status: Acute Assessment and Plan: due to ERIC and possible acute illness follow trend of H/H anemia studies with iron deficiency noted IV iron while hospitalized oral iron on discharge dose with HEATHER while hospitalized may need Hem/Onc following for HEATHER injections as an outpatient Will continue to follow. Subjective Date/time seen: 05/10/24 13:35 Interval history: Follow-up for acute kidney injury/acute renal failure. Still no significant improvement in renal function/creatinine although still making reasonable urine output and no critical electrolyte abnormalities; no apparent distress noted at the time of my visit; no other issues/events overnight or earlier this morning. Exam Narrative: General: elderly but WD/WN female in NAD Heart: normal S1 and S2; no rub Lungs: clear to auscultation Abdomen: soft, nontender, nondistended, positive bowel sounds Extremities: no cyanosis or clubbing; no edema Skin: no rash Objective Data Vital Signs Vital Signs: Vital Signs Temp Pulse Resp BP Pulse Ox O2 Del Method 05/10/24 13:00 98 F 67 16 157/57 H 100 05/10/24 08:00 Room Air 05/10/24 10:01 Room Air 05/10/24 08:50 Room Air 05/10/24 06:00 98.1 F 69 18 174/52 H 99 05/10/24 00:04 65 05/09/24 20:00 79 05/09/24 20:10 Room Air 05/09/24 20:08 98.5 F 71 18 174/48 H 100 Intake/Output Intake/Output: Intake & Output 05/07/24 05/08/24 05/09/24 05/10/24 23:59 23:59 23:59 23:59 Intake Total 9742 715 8145 820 Output Total 1825 1515 635 500 Balance -661 -1275 845 320 Meds/Results Medications: Active Medications Generic Name Dose Route Start Last Admin Trade Name Freq PRN Reason Stop Dose Admin Hydrocodone Bitart/Acetaminophen 1 tab 05/05/24 15:03 05/10/24 17:22 Hydrocodone/Acetaminophen (*Crx) 5-325 Mg Tablet PO 1 tab Q6H PRN Administration Pain Rated 4-6
[2024-05-10] MEDS: EPOETIN ALFA 20,000 UNITS/ML VIAL 20000 UNITS SUB-Q (16:04)
[2024-05-10] MEDS: hydrALAZINE 12.5 MG TABLET PO ×2 (17:22→20:10)
[2024-05-10] MEDS: HYDROmorphone HCL INJ (*CRX) 1 MG/ML SYR 0.5 MG IV PUSH (19:51)
[2024-05-10] MEDS: ROSUVASTATIN 20 MG TABLET 40 MG PO (20:10)
[2024-05-11 04:55] VITALS: BP 146/52; PULSE 65; RESP 16; TEMP 36.9; O2SAT 100
[2024-05-11 06:07] LABS: Basophils Absolute Auto 0.1 K/mm3 (0.0-0.1); Eosinophils Absolute Auto 0.6 K/mm3 (0-0.3); Eosinophils Percent Auto 7.4 % (0-4.4); Hemoglobin 7.7 g/dL (12.0-15.0); Immature Granulocyte Absolute 0.03 K/mm3 (0.00-0.031); Immature Granulocyte Percent A 0.4 % (0-0.5); Lymphocytes Absolute Auto 2.08 K/mm3 (0.9-3.2); Lymphocytes Percent Auto 24.8 % (18.3-44.2); Mean Corpuscular HGB Conc 32.1 g/dl (32-36); Mean Corpuscular Hemoglobin 32.2 pg (26-34); Mean Corpuscular Volume 100.4 fl (80-100); Mean Platelet Volume 10.2 fl (7.4-10.4); Monocytes Absolute Auto 0.5 K/mm3 (0.1-0.6); Monocytes Percent Auto 5.7 % (2.6-8.5); Neutrophils Absolute Auto 5.1 K/mm3 (1.3-6.7); Neutrophils Percent Auto 60.7 % (45.5-73.1); Platelet Count Result 267 k/mm3 (150-375); Red Blood Count 2.39 M/mm3 (4.2-5.4); Red Cell Distribution Width 13.3 % (11.5-14.5); White Blood Count 8.4 K/mm3 (4.5-10.0)
[2024-05-11 06:23] LABS: Alkaline Phosphatase 79 U/L (38-126); Anion Gap 7 mmol/L (4-12); Aspartate Amino Transferase 20 U/L (14-36); Bilirubin,Total < 0.1 mg/dL (0.2-1.3); Blood Urea Nitrogen 43 mg/dL (7-17); Calcium 8.2 mg/dL (8.4-10.2); Carbon Dioxide 21 mmol/L (22-30); Chloride 109 mmol/L (98-107); Estimated CRCL calculation 9 ml/min; Estimated Glomerular Filt Rate 12; Glucose 90 mg/dL (65-110); Magnesium 2.2 mg/dL (1.6-2.3); Phosphorus 5.3 mg/dL (2.5-4.5); Potassium 3.8 mmol/L (3.4-5.0); Sodium 137 mmol/L (137-145)
[2024-05-11 07:40] LABS: Alanine Aminotransferase < 6 U/L (6-35)
--- NOTE | 2024-05-11 09:22 | WPDUROPN2 ---
Progress Note: A&P Assessment and Plan (1) Bilateral hydronephrosis: Code(s): N13.30 - Unspecified hydronephrosis Status: Acute Assessment and Plan: Bilateral hydronephrosis with high-grade obstruction evident on Lasix renal scan and persistently elevated creatinine S/p left ureteral stent placement on 05/05/2024. Right ureteral stent unable to be placed as right ureteral orifice not visible. S/p right percutaneous nephrostomy tube placement by IR on 05/08/2024 She will need to continue with left ureteral stent, right nephrostomy tube, and Fuentes catheter on discharge. She will need to follow-up with her established urologist in [place] for definitive management. Patient understands temporary nature of stent, nephrostomy, and Fuentes and need for close outpatient follow-up (2) ERIC (acute kidney injury): Code(s): N17.9 - Acute kidney failure, unspecified Status: Acute Assessment and Plan: Creatinine elevated this admission ranging from 2.7-3.8. Renal function will continue to be closely monitored. Being followed by nephrology. Subjective Subjective Date/Time Seen: 05/11/24 09:22 Interval history: Adelaiad is a cough today. Reports overall feeling much improved. Denies flank pain or back pain. No issues with Fuentes catheter which is draining clear yellow urine. Her right nephrostomy tube is also draining well with clear yellow output. Denies nausea, vomiting, fever, or chills. Tolerating diet. Review of Systems Review of Systems: All systems reviewed & are unremarkable except as noted in HPI and below Exam Narrative: General: Awake, alert, comfortable, no acute distress HEENT: Normocephalic, atraumatic, sclerae anicteric Respiratory: Normal respiratory effort, no accessory muscle use Abdomen: Nondistended, soft, nontender : Right nephrostomy tube with clear yellow output, Fuentes catheter draining clear yellow urine Skin: Normal coloration, warm and dry Neurologic: No focal neuro deficits noted Psychiatric: Appropriate mood and affect, judgment and insight intact Objective Data Vital Signs Vital Signs: Vital Signs - 24 hr 05/10/24 10:01 05/10/24 14:00 05/10/24 17:22 Temperature 98 F Pulse Rate 67 Respiratory Rate 16 Blood Pressure 157/57 H 184/63 H Pulse Oximetry 100 Oxygen Delivery Room Air Fraction of Inspired Oxygen 05/10/24 18:34 05/10/24 20:27 05/10/24 20:00 Temperature 97.6 F Pulse Rate 73 73 Respiratory Rate 16 16 Blood Pressure 147/54 H 129/76 Pulse Oximetry 100 100 Oxygen Delivery Room Air Fraction of Inspired Oxygen 21 05/11/24 04:55 Temperature 98.5 F Pulse Rate 65 Respiratory Rate 16 Blood Pressure 146/52 H Pulse Oximetry 100 Oxygen Delivery Fraction of Inspired Oxygen Intake/Output Intake/Output: Intake & Output 05/08/24 05/09/24 05/10/24 05/11/24 23:59 23:59 23:59 23:59 Intake Total 240 1480 1860 150 Output Total 6460 168 2950 380 Balance -1275 845 35 -230 Meds/Results Medications: Active Medications Generic Name Dose Route Start Last Admin Trade Name Freq PRN Reason Stop Dose Admin Hydrocodone Bitart/Acetaminophen 1 tab 05/05/24 15:03 05/10/24 17:22 Hydrocodone/Acetaminophen (*Crx) 5-325 Mg Tablet PO 1 tab Q6H PRN Administration Pain Rated 4-6 Amlodipine Besylate 10 mg 05/03/24 01:40 05/10/24 09:30 Amlodipine Besylate 10 Mg Tablet PO 06/02/24 08:59 10 mg DAILY HIREN Administration Aspirin 81 mg 05/03/24 09:00 05/10/24 09:30 Aspirin 81 Mg Enteric Tablet PO 81 mg DAILY HIREN Administration Bisacodyl 10 mg 05/04/24 10:43 05/04/24 17:41 Bisacodyl 10 Mg Suppository RECTAL 10 mg QAM PRN Administration Constipation Clopidogrel Bisulfate 75 mg 05/03/24 09:00 05/10/24 09:30 Clopidogrel Bisulfate 75 Mg Tablet PO 75 mg DAILY HIREN Administration Docusate Sodium 100 mg 05/04/24 09:00 05/10/24 20:10 Docusate Sodium 100
[2024-05-11 09:40] VITALS: BP 158/48; PULSE 69
[2024-05-11] MEDS: FERROUS SULFATE 325 MG TABLET DR PO (09:40)
[2024-05-11] MEDS: HYDROcodone/acetaminophen (*CRX) 5-325 MG TABLET 1 TAB PO (09:40)
[2024-05-11] MEDS: CLOPIDOGREL BISULFATE 75 MG TABLET PO (09:40)
[2024-05-11] MEDS: GABAPENTIN 400 MG CAPSULE PO ×2 (09:40→12:26)
[2024-05-11] MEDS: hydrALAZINE 12.5 MG TABLET PO ×2 (09:40→12:26)
[2024-05-11] MEDS: polyethylene glycoL 3350 17 GM POWD.PACK PO (09:41)
[2024-05-11] MEDS: ASPIRIN 81 MG ENTERIC TABLET PO (09:41)
[2024-05-11] MEDS: SERTRALINE HCL 25 MG TABLET PO (09:41)
[2024-05-11] MEDS: amLODIPine BESYLATE 10 MG TABLET PO (09:41)
[2024-05-11] MEDS: DOCUSATE SODIUM 100 MG CAPSULE PO (09:41)
[2024-05-11] MEDS: BISACODYL 10 MG SUPPOSITORY RECTAL (09:59)
--- NOTE | 2024-05-11 10:38 | PCNFU ---
Nutrition Follow-Up Complete: Inadequate Energy Intake as related to ERIC as evidenced by poor po intake and weight loss reported. goal: Meet estimated nutritional needs. Patient is progressing towards goal. We will continue current goal. Pt current nutrition is Regular with Ensure Compact BID. Last recorded weight is 44.3 kg, no new weight to report. Bowel Motility: No BM reported. Labs Reviewed:Cr 3.8,BUN 43, Hct 24.0,Hgb 7.7 Meds Noted: Miralax PRN, Dulcolax Suppository PRN Skin: WNL Additional Notes: Patient is tolerating a regular diet with ensure compact BID. I spoke with nursing today regarding no BM documented since admission. Agree with diet orders. Will monitor weight, labs, skin, oral intake, meds every 5 days.
--- NOTE | 2024-05-11 12:19 | P.PNNP_ITS ---
Progress Note: A&P Assessment and Plan (1) ERIC (acute kidney injury): Code(s): N17.9 - Acute kidney failure, unspecified Status: Acute Assessment and Plan: * relatively stable -- not real improvement noted * normal baseline creatinine in June 2023 * no previous labs in the interim except in April 2024: * 04/20/24 - creatinine 3.7mg/dl * 04/23/24 - creatinine 3.0mg/dl * 05/02/24 - creatinine 2.7mg/dl * multifactorial etiology: * obstructive uropathy/bilateral hydronephrosis * diuretic therapy (HCTZ + spironolactone) * significant vascular disease (? history of renal artery stent) * GLO-I use * prerenal factors (?) * other (?) * evaluation to date noted: * imaging studies noted * urine eosinophils negative * urine electrolytes non-prerenal * CPK mildly elevated (but not enough to affect kidney function) * nephrotic range proteinuria noted * agree with holding GLO-I and diuretics for now * given the lack of improvement in renal function despite all interventions to date, I am starting to suspect that her renal function has been abnormal for a significant period of time before admission and her current creatinine may be her new baseline....however, I suppose it could improve with time... * will need Urology follow-up and likely Nephrology follow-up on discharge * has already been informed the temporary nature of byrnes cahteter, ureteral stent, and nephrostomy tube * follow trend of repeat labs and UOP (2) Bilateral hydronephrosis: Code(s): N13.30 - Unspecified hydronephrosis Status: Acute Assessment and Plan: * admission imaging noted -- outpatient imaging on 04/23 noted this issue as well. * acute? * acute on chronic? * chronic? * byrnes catheter in place * s/p cystoscopy with left ureteral stent placement (on 05/05/24) * unable to place right ureteral stent (unable to identify right ureteral orifice) * s/p right nephrostomy tube placement (on 05/08/24) * Urology following (3) Hypertension: Code(s): I10 - Essential (primary) hypertension Status: Chronic Assessment and Plan: * diuretics and GLO-I on hold due to #1 * on oral hydralazine and home medication of amlodipine * follow trend of hemodynamics (4) Anemia: Code(s): D64.9 - Anemia, unspecified Status: Acute Assessment and Plan: * due to ERIC and possible acute illness * follow trend of H/H * anemia studies with iron deficiency noted * IV iron while hospitalized * oral iron on discharge * dose with HEATHER while hospitalized * may need Hem/Onc following for HEATHER injections as an outpatient Will continue to follow. Subjective Date/time seen: 05/11/24 12:19 Interval history: Follow-up for acute kidney injury/acute renal failure. No apparent distress voiced at the time of my visit -- renal function/creatinine remains the same with no improvement; relatively stable electrolytes as well as urine output as well; dose with Epogen yesterday for anemia; no other events events overnight. Exam Narrative: General: elderly but WD/WN female in NAD Heart: normal S1 and S2; no rub Lungs: clear to auscultation Abdomen: soft, nontender, nondistended, positive bowel sounds Extremities: no cyanosis or clubbing; no edema Skin: no nodules Objective Data Vital Signs Vital Signs: Vital Signs
--- NOTE | 2024-05-11 12:19 | PM.PNNEP ---
Progress Note: A&P Assessment and Plan (1) ERIC (acute kidney injury): Code(s): N17.9 - Acute kidney failure, unspecified Status: Acute Assessment and Plan: relatively stable -- not real improvement noted normal baseline creatinine in June 2023 no previous labs in the interim except in April 2024: 04/20/24 - creatinine 3.7mg/dl 04/23/24 - creatinine 3.0mg/dl 05/02/24 - creatinine 2.7mg/dl multifactorial etiology: obstructive uropathy/bilateral hydronephrosis diuretic therapy (HCTZ + spironolactone) significant vascular disease (? history of renal artery stent) GLO-I use prerenal factors (?) other (?) evaluation to date noted: imaging studies noted urine eosinophils negative urine electrolytes non-prerenal CPK mildly elevated (but not enough to affect kidney function) nephrotic range proteinuria noted agree with holding GLO-I and diuretics for now given the lack of improvement in renal function despite all interventions to date, I am starting to suspect that her renal function has been abnormal for a significant period of time before admission and her current creatinine may be her new baseline....however, I suppose it could improve with time... will need Urology follow-up and likely Nephrology follow-up on discharge has already been informed the temporary nature of byrnes cahteter, ureteral stent, and nephrostomy tube follow trend of repeat labs and UOP (2) Bilateral hydronephrosis: Code(s): N13.30 - Unspecified hydronephrosis Status: Acute Assessment and Plan: admission imaging noted -- outpatient imaging on 04/23 noted this issue as well. acute? acute on chronic? chronic? byrnes catheter in place s/p cystoscopy with left ureteral stent placement (on 05/05/24) unable to place right ureteral stent (unable to identify right ureteral orifice) s/p right nephrostomy tube placement (on 05/08/24) Urology following (3) Hypertension: Code(s): I10 - Essential (primary) hypertension Status: Chronic Assessment and Plan: diuretics and GLO-I on hold due to #1 on oral hydralazine and home medication of amlodipine follow trend of hemodynamics (4) Anemia: Code(s): D64.9 - Anemia, unspecified Status: Acute Assessment and Plan: due to ERIC and possible acute illness follow trend of H/H anemia studies with iron deficiency noted IV iron while hospitalized oral iron on discharge dose with HEATHER while hospitalized may need Hem/Onc following for HEATHER injections as an outpatient Will continue to follow. Subjective Date/time seen: 05/11/24 12:19 Interval history: Follow-up for acute kidney injury/acute renal failure. No apparent distress voiced at the time of my visit -- renal function/creatinine remains the same with no improvement; relatively stable electrolytes as well as urine output as well; dose with Epogen yesterday for anemia; no other events events overnight. Exam Narrative: General: elderly but WD/WN female in NAD Heart: normal S1 and S2; no rub Lungs: clear to auscultation Abdomen: soft, nontender, nondistended, positive bowel sounds Extremities: no cyanosis or clubbing; no edema Skin: no nodules Objective Data Vital Signs Vital Signs: Vital Signs Temp Pulse Resp BP Pulse Ox O2 Del Method FiO2 05/11/24 08:00 Room Air 05/11/24 09:40 69 158/48 H 05/11/24 04:55 98.5 F 65 16 146/52 H 100 05/10/24 20:00 73 16 100 Room Air 21 05/10/24 20:27 97.6 F 73 16 129/76 100 05/10/24 18:34 147/54 H 05/10/24 17:22 184/63 H 05/10/24 14:00 98 F 67 16 157/57 H 100 Intake/Output Intake/Output: Intake & Output 05/08/24 05/09/24 05/10/24 05/11/24 23:59 23:59 23:59 23:59 Intake Total 240 1480 1860 372 Output Total 8264 306 5453 380 Balance -1275 845 35 -8 Meds/Results Medications: Active
--- NOTE | 2024-05-11 13:40 | PM.DS ---
DS: Admitting Diagnosis Discharge Date 05/11/2024 Admitting Diagnosis bilateral hydronephrosis eric hypertension anemia DS: Discharge Diagnosis Discharge Diagnosis (1) Bilateral hydronephrosis: Code(s): N13.30 - Unspecified hydronephrosis Status: Acute (2) ERIC (acute kidney injury): Code(s): N17.9 - Acute kidney failure, unspecified Status: Acute (3) Hypertension: Code(s): I10 - Essential (primary) hypertension Status: Chronic (4) Anemia: Code(s): D64.9 - Anemia, unspecified Status: Acute DS: Summary Hospital Course Reason for hospitalization: bilateral hydronephrosis eric hypertension anemia Hospital Course: 64 year old female with past medical history of bladder cancer s/p chemo radiation, HTN, PVD, CKD, 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 BUN/Cr 41/2.7 on admission. An abdomen/pelvis CT was obtained and showed mild right and moderate left hydroureteronephrosis extending to the bladder, possibly related to bladder outlet obstruction, neurogenic bladder or obstruction at the level of the renal apices to junctions with focal bladder mural calcification at the right ureterovesicular junction and possible 4 mm stone at the left ureterovesicular junction. Renal US showed moderate bilateral hydronephrosis. Urology was consulted. Byrnes catheter placed on 05/03/24. Renal scan with NM showed symmetric kidney function. There is delayed activity clearance from both kidneys with continually rising activity curves which would be consistent with high-grade obstruction likely at the level of the bladder given the bilaterality. Patient underwent a left ureteral stent placement on 05/05/2024with Dr. Zeng. Right ureteral stent unable to be placed as right ureteral orifice not visible. Repeat abdomen/pelvis CT showed right hydronephrotic changes with dilated right ureter, Multiple urinary bladder stones and feft double-J stent with air seen in the pelvic calyceal system and ureter. Repeat renal US showed moderate-severe right hydronephrosis. Despite interventions, patients creatinine continued to rise and nephrology was consulted. Patient underwent a right percutaneous nephrostomy tube placement had a IR on 05/08/2024. Again despite intervention there is no improvement to patients creatinine. Spoke with Dr. Cano who states this has likely been an ongoing issue given her chemo/radiation history and the lack of follow up lab work. He states that the BUN/Cr can continue to be followed in the outpatient setting and that the patient will require a nurse orthopedic. Spoke with Dr. Zeng in regards to patient and he states that the stent, nephrostomy tube and byrnes will stay in at time of discharge. He notes that patient should follow up with her urologist and oncologist outpatient. The tubes will eventually need to be removed whether it be by him or her current urologist. Discussed the importance of follow up with patient and her family and they state understanding. Due to patient's current kidney function several home antihypertensives found to be hold. She remains on her amlodipine and was started on hydralazine. Pressures remained stable prior to discharge. Patient was noted to have iron deficiency anemia likely secondary to kidney function. She received a dose of IV Venofer and was started iron supplementation. Prior discharge patient denied chest pain, shortness a breath, nausea/vomiting, and abdominal pain. She was able to work with physical therapy who recommend home. Patient discharged in stable condition with home health. Discussed in depth with patient that she is to follow up with urology and nephrology at time of discharge. Patient will need to have the stent, nephrostomy tube and byrnes catheter removed per urology. Status at Discharge Functional status at discharge: wheelchair bound Time Spent with Toyin
[2024-05-11 14:00] VITALS: BP 136/47; PULSE 73; RESP 17; TEMP 36.4; O2SAT 100
== END 2024-05-11 14:55 | disposition home health service (06) | DRG 660 ==
LOC: ANHED 05-03 00:12 → ANH2MED 05-03 00:28
PROVIDERS: Internal Medicine Nephrology; Nurse Practitioner; Physician Assistant; Urology; Admitting Provider Internal Medicine; Emergency Provider Emergency Medicine; PCP Registered Nurse; Visit Provider Student in an Organized Health Care Education/Training Program
PROC: 0T778DZ Dilation of Left Ureter with Intraluminal Device, Via Natural or Artificial Opening Endoscopic (ICD-10-PCS; CPT 52352; principal; 2024-05-05 14:15)
DX: N13.30 Unspecified hydronephrosis (principal); L97.419 Non-pressure chronic ulcer of right heel and midfoot with unspecified severity; N17.9 Acute kidney failure, unspecified; D50.9 Iron deficiency anemia, unspecified; F17.210 Nicotine dependence, cigarettes, uncomplicated; I12.9 Hypertensive chronic kidney disease with stage 1 through stage 4 chronic kidney disease, or unspecified chronic kidney disease; I73.9 Peripheral vascular disease, unspecified; N18.9 Chronic kidney disease, unspecified; Z28.21 Immunization not carried out because of patient refusal; Z79.02 Long term (current) use of antithrombotics/antiplatelets; Z79.82 Long term (current) use of aspirin; Z85.51 Personal history of malignant neoplasm of bladder; Z92.21 Personal history of antineoplastic chemotherapy; Z92.3 Personal history of irradiation; Z89.421 Acquired absence of other right toe(s); Z95.828 Presence of other vascular implants and grafts; N28.89 Other specified disorders of kidney and ureter; Z87.442 Personal history of urinary calculi
CPT/HCPCS: 36415; 50432; 71045; 74176; 76775; 78708; 80048; 80053; 81001; 81050; 82550; 82570; 82607; 82728; 82746; 83540; 83550; 83735; 84100; 84156; 84300; 84484; 84540; 85025; 85027; 85610; 85730; 85999; 93005; 96361; 96374; 96375; 96376; 97161; 97165; 99285; A9270; A9562; C1729; C1758; C1769; C2617; G0378; J0360; J0690; J1170; J1171; J1756; J1940; J2270; J2405; J2704; J3010; J7030; J7120; Q4081

== ENCOUNTER 2024-05-19 13:35 | Outpatient (NON) | payer MEDICARE, MEDICAID, SELFPAY ==
[2024-05-19 15:03] LABS: Add Urine Microscopic? YES; Appearance Urine Clear (Clear); Basophils Absolute Auto 0.09 K/mm3 (0.00-0.10); Basophils Percent Auto 0.7 % (0.0-1.0); Bilirubin Urine Negative (Negative); Blood Urine 3+ (Negative); Color Urine Light Yellow (Yellow); Eosinophils Absolute Auto 0.34 K/mm3 (0.02-0.50); Eosinophils Percent Auto 2.8 % (1.0-6.0); Glucose Urine UA Negative (Negative); Hematocrit 31.1 % (35.0-42.0); Hemoglobin 10.3 g/dL (11.7-13.8); Immature Granulocyte Absolute 0.05 K/mm3 (0.00-0.00); Immature Granulocyte Percent A 0.4 % (0.0-0.0); Ketones Urine Negative (Negative); Leukocyte Esterase Ur 2+ (Negative); Lymphocytes Absolute Auto 1.66 K/mm3 (1.10-4.50); Lymphocytes Percent Auto 13.5 % (18.0-42.0); Mean Corpuscular HGB Conc 33.1 g/dL (32-36); Mean Corpuscular Volume 99.7 fL (78.0-102.0); Mean Platelet Volume 9.8 fl (9.2-11.8); Monocytes Absolute Auto 0.51 K/mm3 (0.10-0.90); Monocytes Percent Auto 4.2 % (2.0-11.0); Neutrophils Absolute Auto 9.62 K/mm3 (1.70-7.20); Neutrophils Percent Auto 78.4 % (50.0-70.0); Nitrate Urine Positive (Negative); Platelet Count Result 467 K/mm3 (150-420); Protein Urine 3+ (Negative); Red Blood Count 3.12 M/mm3 (4.20-5.40); Red Cell Distribution Width 14.6 % (11.6-14.4); Urobilinogen Urine 0.2 mg/dL (0.2-1.0); White Blood Count 12.3 K/mm3 (4.8-10.8); pH Urine 6.5 (5.0-8.0)
[2024-05-19 15:13] LABS: WBC Urine 21-30 /hpf (0-3)
[2024-05-19 15:14] LABS: Bacteria Urine 1+ /hpf; Squamous Epithelial Cell Urine Few /hpf (Few)
[2024-05-19 15:18] LABS: Alanine Aminotransferase 11 U/L (14-59); Alkaline Phosphatase 101 U/L (46-116); Anion Gap 10 mmol/L (4-12); Aspartate Amino Transferase 14 U/L (15-37); Bilirubin,Total 0.3 mg/dL (0.00-1.00); Blood Urea Nitrogen 39 mg/dL (7-18); Calcium 9.3 mg/dL (8.5-10.1); Carbon Dioxide 26 mmol/L (21-32); Chloride 101 mmol/L (98-108); Estimated Glomerular Filt Rate 12; Glucose 107 mg/dL (70-99); Osmolality Calculated 293 mOsm/kg (285-295); Potassium 3.6 mmol/L (3.5-5.1); Sodium 137 mmol/L (136-145); Total Protein 7.7 g/dL (6.4-8.2)
== END 2024-05-19 13:36 | disposition home or self-care (01) ==
LOC: CHSLAB 13:44
DX: N17.9 Acute kidney failure, unspecified (principal); I12.9 Hypertensive chronic kidney disease with stage 1 through stage 4 chronic kidney disease, or unspecified chronic kidney disease; N18.9 Chronic kidney disease, unspecified; N39.0 Urinary tract infection, site not specified; D63.1 Anemia in chronic kidney disease; N13.30 Unspecified hydronephrosis; Z79.02 Long term (current) use of antithrombotics/antiplatelets
CPT/HCPCS: 36415; 80053; 81001; 85025; 87077; 87086; 87088; 87186